=== PATIENT | male | born 1960 | race Caucasian/White ===

== ENCOUNTER 2018-03-28 13:18 | Inpatient (IN) | payer MEDICARE ==
[~2018-03-28] VITALS: Ht 188 cm; Wt 59.2 kg
[~2018-03-28 13:18] MED LIST: ZYPR15TA12 PO
[2018-03-28 13:43] VITALS: BP 115/71; PULSE 80; RESP 20; TEMP 97.4; O2SAT 98
--- NOTE | 2018-03-28 17:29 | PD ---
HPI Chief Complaint: Medical Clearance Time Seen by Provider: 16:03 Travel History International Travel<30 days: No Contact w/Intl Traveler<30days: No Traveled to known affect area: No History of Present Illness HPI 57-year-old male presents to the emergency department. Apparently in triage she was complaining about his toenail fungus and then also complaining about the fact that he is missing his Medicaid card. On my examination the patient has very disorganized thoughts and appears to be having possible visual hallucinations. He has history of schizophrenia and says he is not on medications. When I asked him about his toenail fungus he said he is afraid of it hurting. He also asked "can I go to [facility] voluntarily?" He said he walked here from his home to be admitted. When asked him what he wanted to be admitted for he does not know. He denies suicidal or homicidal ideations. Denies auditory or visual hallucinations. Denies illicit drug use, alcohol use. Denies recent injuries. Says he is not homeless and he lives alone. He says he was here earlier to sign paperwork. I reviewed his medical records and I do not see that he has any visit here today. He cannot recall his medical history and does not know what medications he takes. He does not know if he has a primary care provider. Symptoms are moderate to severe in severity. Onset unknown. Duration unknown. No known aggravating or relieving factors. Patient has no other medical complaints. He denies chest pain, shortness of breath, abdominal pain, change in urine or stool. No other modifying factors or associated signs and symptoms. PFSH Past Medical History Arthritis: No Asthma: No Autoimmune Disease: No Blood Disorders: No Anxiety: Yes Depression: No Heart Rhythm Problems: No Cancer: No Cardiovascular Problems: No High Cholesterol: No Chemotherapy: No Chest Pain: No Congestive Heart Failure: No COPD: No Cerebrovascular Accident: No Diabetes: No Diminished Hearing: No Endocrine: No GERD: No Glaucoma: No Genitourinary: No Headaches: No Hepatitis: No Hiatal Hernia: No Hypertension: No Immune Disorder: No Kidney Stones: No Musculoskeletal: No Neurologic: No Psychiatric: Yes Reproductive: No Respiratory: No Migraines: No Myocardial Infarction: No Radiation Therapy: No Renal Failure: No Schizophrenia: Yes Seizures: No Sleep Apnea: No Thyroid Disease: No Ulcer: No Tetanus Vaccination: < 5 Years Past Surgical History Abdominal Surgery: No AICD: No Appendectomy: No Arteriovenous Shunt: No Cardiac Surgery: No Cholecystectomy: No Ear Surgery: No Endocrine Surgery: No Eye Surgery: No Genitourinary Surgery: No Gynecologic Surgery: No Insulin Pump: No Joint Replacement: No Oral Surgery: No Pacemaker: No Thoracic Surgery: No Social History Alcohol Use: No Tobacco Use: Yes (1 PACK A DAY FOR 35YRS) Substance Use: No (DENIES) Allergies-Medications (Allergen,Severity, Reaction): Coded Allergies: No Known Allergies (Verified Allergy, Severe, PER PSYCHIATRIC ADMISSION ORDERS, 09/30/07) Reported Meds & Prescriptions Reported Meds & Active Scripts Active Reported Zyprexa Zydis (Olanzapine) 15 Mg Tab 15 Mg PO BID Review of Systems Except as stated in HPI: all other systems reviewed are Neg Physical Exam Narrative GENERAL: Thin, elderly, male patient, in no acute distress SKIN: Warm and dry. HEAD: Atraumatic. Normocephalic. EYES: Pupils equal and round. ENT: Mucosa pink and moist. NECK: Supple. Trachea midline. CARDIOVASCULAR: Regular rate and rhythm. No murmur appreciated. RESPIRATORY: No accessory muscle use. Clear to auscultation. Breath sounds equal bilaterally. GASTROINTESTINAL: Abdomen soft, non-tender, nondistended. Hepatic and splenic margins not palpable. Bowel sounds are active 4 quadrants. MUSCULOSKELETAL: No obvious deformities. No clubbing. No cyanosis. No edema. BACK: No CVA tenderness. NEUROLOGICAL: Awake and alert. No obvious cranial nerve deficits. Motor grossly within normal limits. Normal speech. Moves all extremities. 5/5 strength to all extremities. PSYCHIATRIC: Disorganized thought processes. Appears to be having visual hallucinations. Data Data Last Documented VS Vital Signs Date Time Temp Pulse Resp B/P (MAP) Pulse Ox O2 Delivery O2 Flow Rate FiO2 03/28/18 13:43 97.4 80 20 115/71 (86) 98 Orders Orders Complete Blood Count With Diff (03/28/18 16:55) Comprehensive Metabolic Panel (03/28/18 16:55) Thyroid Stimulating Hormone (03/28/18 16:55) Psych Screen (03/28/18 16:55) Drug Screen, Random Urine (03/28/18 16:55) Alcohol (Ethanol) (03/28/18 16:55) Salicylates (Aspirin) (03/28/18 16:55) Tylenol (Acetaminophen) (03/28/18 16:55) Ct Brain W/O Iv Contrast(Rout) (03/28/18 ) Labs Laboratory Tests Test 03/28/18 17:20 [facility] Medical Decision Making Medical Screen Exam Complete: Yes Emergency Medical Condition: Yes Medical Record Reviewed: Yes Differential Diagnosis Schizophrenia, psychosis, dementia, medical clearance for psychiatric evaluation Narrative Course This is a 57-year-old male who has history of schizophrenia. His thoughts are disorganized and he appears to be having visual hallucinations. I initiated a Vickers act as I feel that without care or treatment person can cause serious bodily harm to himself. Physical examination and vital signs are essentially unremarkable. Patient has no medical complaints to report. Psych screen has been ordered. If the laboratory results are unremarkable, the patient will be medically cleared for psychiatric evaluation and disposition. CT head ordered for altered mental status. Diagnosis Primary Impression: Medical clearance for psychiatric admission Condition: Stable Amber Baltazar March 28, 2018 17:29
--- NOTE | 2018-03-28 17:56 | RADRPT ---
EXAM DATE/TIME: 03/28/2018 17:33 [facility] COMPARISON: No previous studies available for comparison. INDICATIONS : Altered mental status. RADIATION DOSE: 56.35 CTDIvol (mGy) MEDICAL HISTORY : Schizophrenia. SURGICAL HISTORY : None. ENCOUNTER: Initial ACUITY: 1 day PAIN SCALE: 0/10 LOCATION: cranial TECHNIQUE: Multiple contiguous axial images were obtained of the head. Using automated exposure control and adj ustment of the mA and/or kV according to patient size, radiation dose was kept as low as reasonably a chievable to obtain optimal diagnostic quality images. DICOM format image data is available electro nically for review and comparison. FINDINGS: CEREBRUM: The ventricles are normal for age. No evidence of midline shift, mass lesion, hemorrhage or acute in farction. No extra-axial fluid collections are seen. POSTERIOR FOSSA: The cerebellum and brainstem are intact. The 4th ventricle is midline. The cerebellopontine angle i s unremarkable. EXTRACRANIAL: The visualized portion of the orbits is intact. SKULL: The calvaria is intact. No evidence of skull fracture. CONCLUSION: Normal examination. Shaan Adrian MD on March 28, 2018 at 17:53 Board Certified Radiologist. This report was verified electronically.
[2018-03-28 18:13] LABS: AUTOMATED NEUTROPHIL # 5.8 TH/MM3 (1.8-7.7); BASOPHIL # 0.1 TH/MM3 (0-0.2); BASOPHIL % 1.2 % (0.0-2.0); EOSINOPHIL # 0.2 TH/MM3 (0-0.4); EOSINOPHIL % 2.8 % (0.0-4.0); HEMATOCRIT 37.7 % (39.0-51.0); HEMOGLOBIN 12.5 GM/DL (13.0-17.0); LYMPH % 17.2 % (9.0-44.0); LYMPHOCYTE # 1.4 TH/MM3 (1.0-4.8); MEAN CELL VOLUME 88.9 FL (80.0-100.0); MEAN CORPUSCULAR HEMOGLOBIN 29.5 PG (27.0-34.0); MEAN CORPUSCULAR HGB CONC 33.2 % (32.0-36.0); MEAN PLATELET VOLUME 9.7 FL (7.0-11.0); MONO % 7.2 % (0.0-8.0); MONOCYTE # 0.6 TH/MM3 (0-0.9); NEUT % 71.6 % (16.0-70.0); PLATELET COUNT 158 TH/MM3 (150-450); RED BLOOD COUNT 4.24 MIL/MM3 (4.50-5.90); RED CELL DISTRIBUTION WIDTH 15.7 % (11.6-17.2); WHITE BLOOD COUNT 8.1 TH/MM3 (4.0-11.0)
[2018-03-28 18:20] LABS: ALT (GPT) 44 U/L (12-78)
[2018-03-28 18:30] LABS: ALKALINE PHOSPHATASE 78 U/L (45-117); TOTAL BILIRUBIN ADULT 0.5 MG/DL (0.2-1.0); TOTAL PROTEIN 6.3 GM/DL (6.4-8.2)
[2018-03-28 18:49] LABS: ACETAMINOPHEN LESS THAN 2.0 MCG/ML (10.0-30.0); ALBUMIN 3.4 GM/DL (3.4-5.0); AST (GOT) 58 U/L (15-37); BICARBONATE 25.8 MEQ/L (21.0-32.0); BLOOD UREA NITROGEN 23 MG/DL (7-18); CALCIUM 8.5 MG/DL (8.5-10.1); CHLORIDE 106 MEQ/L (98-107); CREATININE 0.59 MG/DL (0.60-1.30); GLOMERULAR FILTRATION RATE 142 ML/MIN (>89); GLUCOSE,RANDOM 81 MG/DL (74-106); SODIUM (NA) 140 MEQ/L (136-145)
[2018-03-29 00:09] VITALS: BP 112/64; PULSE 65; RESP 17; O2SAT 98
[2018-03-29 06:13] VITALS: BP 136/84; PULSE 69; RESP 16; O2SAT 99
[2018-03-29] MEDS ORDERED: MAGNESIUM HYDROXIDE SUSP 30 ML CUP PO PRN (10:45)
[2018-03-29] MEDS ORDERED: ACETAMINOPHEN 325 MG TAB PO PRN (10:45)
[2018-03-29] MEDS ORDERED: LORazepam 1 MG TAB PO PRN (10:45)
[2018-03-29] MEDS ORDERED: LORazepam 2 MG/ML VIAL IM PRN ×2 (10:45)
[2018-03-29] MEDS ORDERED: LORazepam 0.5 MG TAB PO PRN (10:45)
[2018-03-29] MEDS ORDERED: ALUMINUM/MAGNESIUM/SIMETH 30 ML CUP PO PRN (10:45)
--- NOTE | 2018-03-29 10:53 | HHI.HP ---
Provisional Diagnosis Admission Date [place] I. Schizophrenia [place] II. Deferred [place] III. No medical problems [place] IV. Poor family and social support [place] V. 40 Certification of Person's Competence To Provide Express and Informed Consent I have personally examined Alejandro Davey , a person being served at [facility] on, March 29, 2018 10:36. Express and informed consent means consent voluntarily given in writing, by a competent person, after sufficient explanation and disclosure of the subject matter involved to enable the person to make a knowing and willful decision without any element of force, fraud, deceit, duress, or other form of constraint or coercion. This person is 18 years of age or older, is not now known to be incompetent to consent to treatment with a guardian advocate, and does not have a health care surrogate or proxy currently making medical treatment decisions. I have found this person to be one of the following: [] Competent to provide express and informed consent, as defined above, for voluntary admission to this facility and is competent to provide express and informed consent for treatment. He/she has the consistent capacity to make well reasoned, willful, and knowing decisions concerning his or her medical or mental health treatment. The person fully and consistently understands the purpose of the admission for examination/placement and is fully capable of personally exercising all rights assured [place] Incompetent to provide express and informed consent to voluntary admission, and this is incompetent to provide express and informed consent to treatment. The person must be transferred to involuntary status and a petition for a guardian advocate filed with the Circuit Court. [x] Refusing to provide express and informed consent to voluntary admission but is competent to provide express and informed consent for treatment. The person must be discharged or transferred to involuntary status. Form shall be completed within 24 hours of a person's arrival at the receiving facility and filed in the clinical record of each person: 1. Admitted on a voluntary basis 2. Permitted to provide express and informed consent to his/her own treatment 3. Allowed to transfer from involuntary to voluntary status 4. Prior to permitting a person to consent to his or her own treatment after having been previously found incompetent to consent to treatment. History of Present Illness Capacity: Has Capacity HPI The patient is 57-year-old man, domiciled with a friend in [place] , single, unemployed, with psychiatric history of schizophrenia, multiple psychiatric hospitalizations, he is not in psychotropics, no established outpatient care, no previous suicide attempts, patient was hospitalized in psychiatry in [place] in 2006, documentation reviewed, no significant medical history, who presents in triage complaining about his toenail fungus and then also complaining about the fact that he is missing his Medicaid card. On initial examination in the ER the patient has very disorganized thoughts and appears to be having possible visual hallucinations. When I asked him about his toenail fungus he said he is afraid of it hurting. He also asked "can I go to [facility] voluntarily?" He said he walked here from his home to be admitted. When asked him what he wanted to be admitted for he does not know. Patient is very disorganized, with Fahad loosening of associations, he is able to answer questions appropriately, but when he allowed reasonable idea he becomes quite tangential. He seems to be a little paranoid and internally preoccupied to he says that he has not been taking psychotropics for many years now. He was in olanzapine 10 mg before, but he stopped taking medications "because I did not need them anymore". The patient is fully oriented 3, no attention deficit, no fluctuation of consciousness. He is not aggressive or agitated. He reports good mood, denies anhedonia, denies hopelessness, denies helplessness. He agrees with being admitted and restart his psychotropics. He denies suicidal or homicidal ideations. Denies auditory or visual hallucinations. Denies illicit drug use, alcohol use. Review of Systems Constitutional: DENIES: Diaphoretic episodes, Fatigue, Fever, Weight gain, Weight loss, Chills, Dizziness, Change in appetite, Night Sweats Endocrine: DENIES: Heat/cold intolerance, Polydipsia, Polyuria, Polyphagia Eyes: DENIES: Blurred vision, Diplopia, Eye inflammation, Eye pain, Vision loss , Photosensitivity, Double Vision Ears, nose, mouth, throat: DENIES: Tinnitus, Hearing loss, Vertigo, Nasal discharge, Oral lesions, Throat pain, Hoarseness, Ear Pain, Running Nose, Epistaxis, Sinus Pain, Toothache, Odynophagia Respiratory: DENIES: Apneas, Cough, Snoring, Wheezing, Hemoptysis, Sputum production, Shortness of breath Cardiovascular: DENIES: Chest pain, Palpitations, Syncope, Dyspnea on Exertion , PND, Lower Extremity Edema, Orthopnea, Claudication Gastrointestinal: DENIES: Abdominal pain, Black stools, Bloody stools, Constipation, Diarrhea, Nausea, Vomiting, Difficulty Swallowing, Anorexia Genitourinary: DENIES: Sexual dysfunction, Urinary frequency, Urinary incontinence, Urgency, Hematuria, Dysuria, Nocturia, Penile Discharge, Testicular Pain, Testicular Swelling Musculoskeletal: DENIES: Joint pain, Muscle aches, Stiffness, Joint Swelling, Back pain, Neck pain Integumentary: DENIES: Abnormal pigmentation, Nail changes, Pruritus, Rash Immunologic/allergic: DENIES: Eczema, Urticaria Neurologic: DENIES: Abnormal gait, Headache, Localized weakness, Paresthesias, Seizures, Speech Problems, Tremor, Poor Balance Psychiatric: COMPLAINS OF: Hallucinations, Delusions, DENIES: Anxiety, Confusion, Mood changes, Depression, Agitation, Suicidal Ideation, Homicidal Ideation Substance Abuse History Drugs/Alcohol past 12 months Patient denies the use of alcohol and illegal drugs Past Family Social History Coded Allergies: No Known Allergies (Verified Allergy, Severe, PER PSYCHIATRIC ADMISSION ORDERS, 09/30/07) Discontinued Reported Medications Olanzapine (Zyprexa Zydis) 15 Mg Tab, 15 MG PO BID, 0 Refills 10/09/07 Current Medications Medications (Trade) Dose Ordered Sig/Maggie Route Start Time Stop Time Status Last Admin (Ativan) 1 mg Q6H PRN PO 03/29/18 10:45 UNV (Ativan Inj) 1 mg Q6H PRN IM 03/29/18 10:45 UNV (Ativan) 0.5 mg Q12H PRN PO 03/29/18 10:45 UNV (Ativan Inj) 0.5 mg Q12H PRN IM 03/29/18 10:45 UNV (Tylenol) 650 mg Q4H PRN PO 03/29/18 10:45 UNV (Milk Of Magnesia Liq) 30 ml DAILY PRN PO 03/29/18 10:45 UNV (Mag-Al Plus Susp Liq) 30 ml Q6H PRN PO 03/29/18 10:45 UNV (Habitrol 21 Mg Patch.24 Hr) 1 patch DAILY T-DERMAL 03/30/18 09:00 UNV (ZyPREXA) 2.5 mg HS PO 03/29/18 21:00 UNV Family Psych History No family psychiatric history Social History The patient was born and raised in [place], he losing holy heel with a friend, his single, has no family or social support, unemployed, supported by [facility], his highest level of education is 8th grade. Patient's Strengths (min. 2) Verbal communication Physical Exam Patient is quite hypoactive, with marked psychomotor retardation, but no tremors , no EPS, no gait disturbance Vital Signs Vital Signs Date Time Temp Pulse Resp B/P (MAP) Pulse Ox O2 Delivery O2 Flow Rate FiO2 03/29/18 06:13 69 16 136/84 (101) 99 Room Air 03/28/18 13:43 97.4 Lab Results Test 03/28/18 17:10 03/28/18 17:20 03/28/18 20:30 Blood Urea Nitrogen 23 MG/DL Creatinine 0.59 MG/DL Random Glucose 81 MG/DL Total Protein 6.3 GM/DL Albumin 3.4 GM/DL Calcium Level 8.5 MG/DL Alkaline Phosphatase 78 U/L Aspartate Amino Transf (AST/SGOT) 58 U/L Alanine Aminotransferase (ALT/SGPT) 44 U/L Total Bilirubin 0.5 MG/DL Sodium Level 140 MEQ/L Potassium Level 4.3 MEQ/L Chloride Level 106 MEQ/L Carbon Dioxide Level 25.8 MEQ/L Anion Gap 8 MEQ/L Estimat Glomerular Filtration Rate 142 ML/MIN Thyroid Stimulating Hormone 3rd Gen 0.932 uIU/ML Acetaminophen Level LESS THAN 2.0 MCG/ML Ethyl Alcohol Level LESS THAN 3 MG/DL White Blood Count 8.1 TH/MM3 Red Blood Count 4.24 MIL/MM3 Hemoglobin 12.5 GM/DL Hematocrit 37.7 % Mean Corpuscular Volume 88.9 FL Mean Corpuscular Hemoglobin 29.5 PG Mean Corpuscular Hemoglobin Concent 33.2 % Red Cell Distribution Width 15.7 % Platelet Count 158 TH/MM3 Mean Platelet Volume 9.7 FL Neutrophils (%) (Auto) 71.6 % Lymphocytes (%) (Auto) 17.2 % Monocytes (%) (Auto) 7.2 % Eosinophils (%) (Auto) 2.8 % Basophils (%) (Auto) 1.2 % Neutrophils # (Auto) 5.8 TH/MM3 Lymphocytes # (Auto) 1.4 TH/MM3 Monocytes # (Auto) 0.6 TH/MM3 Eosinophils # (Auto) 0.2 TH/MM3 Basophils # (Auto) 0.1 TH/MM3 CBC Comment AUTO DIFF Differential Comment AUTO DIFF CONFIRMED Platelet Estimate NORMAL Platelet Morphology Comment CLUMPED Salicylates Level 3.9 MG/DL Urine Opiates Screen NEG Urine Barbiturates Screen NEG Urine Amphetamines Screen NEG Urine Benzodiazepines Screen NEG Urine Cocaine Screen NEG Urine Cannabinoids Screen NEG Mental Status Examination Appearance: Dirty, Disheveled, Other (Older than stated age) Consciousness: Alert Orientation: x4 Motor Activity: Abnormal gait Speech: Incoherent Language: Adequate Fund of Knowledge: Adequate Attention and Concentration: Adequate Memory: Unremarkable Mood: Appropriate Affect: Flat Thought Process & Associations: Loose associations, Disorganized Thought Content: Appropriate Hallucination Type: Visual Suicidal Ideation: No Suicidal Plan: No Suicidal Intention: No Homicidal Ideation: No Homicidal Plan: No Homicidal Intention: No Insight: Poor Judgment: Poor Assessment & Plan Problem List: (1) Schizophrenia ICD Codes: F20.9 - Schizophrenia, unspecified Assessment & Plan: Patient presents quite disorganized, psychotic, with Fahad loosening of associations, internal preoccupation, incoherent speech, increased paranoia and reported visual hallucinations. Patient is oriented 3, he does not seem to be cognitively impaired. He has a psychiatric history of schizophrenia, multiple psychiatric hospitalizations, no previous suicidal attempts, the patient admits that he has not been taking psychotropics for a long time now. Due to the level of psychosis the patient is a high risk of danger to self. He needs psychiatric admission for stabilization and safety. Transferred to 2600 unit. We will start olanzapine 2.5 mg twice daily. Consult psychiatry for second opinion. painting and coating worker intervention for psychosocial assessment, collateral information, individual and group therapies , to coordinate safe discharge. Assessment & Plan Estimated LOS: Neal Garcia MD March 29, 2018 10:53
[2018-03-29 12:43] VITALS: BP 122/67; PULSE 63; RESP 16; TEMP 98.1; O2SAT 98
[2018-03-29] MEDS ORDERED: OLANZapine 2.5 MG TAB PO SCH (21:00)
[2018-03-30 05:41] VITALS: BP 102/60; PULSE 61; RESP 16; TEMP 98; O2SAT 98
[2018-03-30] MEDS: NICOTINE 21 MG/24 HR PATCH T-DERMAL SCH (09:00)
[2018-03-30 09:38] LABS: BICARBONATE 27.1 MEQ/L (21.0-32.0); BLOOD UREA NITROGEN 18 MG/DL (7-18); CALCIUM 8.6 MG/DL (8.5-10.1); CHLORIDE 106 MEQ/L (98-107); CREATININE 0.82 MG/DL (0.60-1.30); GLOMERULAR FILTRATION RATE 97 ML/MIN (>89); GLUCOSE,RANDOM 90 MG/DL (74-106); SODIUM (NA) 140 MEQ/L (136-145)
[2018-03-30 09:40] LABS: CHOLESTEROL 159 MG/DL (120-200)
[2018-03-30 09:43] LABS: CHOLESTEROL/ HDL RATIO 2.74 RATIO; HDL CHOLESTEROL 57.9 MG/DL (40.0-60.0); LDL CHOLESTEROL 72 MG/DL (0-99); TRIGLYCERIDES 144 MG/DL (42-150)
--- NOTE | 2018-03-30 12:20 | HHI.PYPN ---
Subjective Remarks This is a request for second opinion. Admission note was reviewed and I agree with the history. Patient was seen and case was discussed with nursing. Patient is disheveled, loose, hyperactive and looking about the room during the interview. Medication reviewed and he is on a very low-dose of Zyprexa. He is alert and oriented 3 and does have consent for medication. Denies suicidal or homicidal ideation intent or plan Mental Status Examination Appearance: Dirty, Disheveled, Other (Older than stated age) Consciousness: Alert Orientation: x4 Motor Activity: Abnormal gait Speech: Incoherent Language: Adequate Fund of Knowledge: Adequate Attention and Concentration: Adequate Memory: Unremarkable Mood: Appropriate Affect: Flat Thought Process & Associations: Loose associations, Disorganized Thought Content: Delusional Hallucination Type: None Delusion Type: Paranoid Suicidal Ideation: No Suicidal Plan: No Suicidal Intention: No Homicidal Ideation: No Homicidal Plan: No Homicidal Intention: No Insight: Poor Judgment: Poor Results Labs Test 03/30/18 08:45 Blood Urea Nitrogen 18 MG/DL Creatinine 0.82 MG/DL Random Glucose 90 MG/DL Calcium Level 8.6 MG/DL Sodium Level 140 MEQ/L Potassium Level 4.4 MEQ/L Chloride Level 106 MEQ/L Carbon Dioxide Level 27.1 MEQ/L Anion Gap 7 MEQ/L Estimat Glomerular Filtration Rate 97 ML/MIN Triglycerides Level 144 MG/DL Cholesterol Level 159 MG/DL LDL Cholesterol 72 MG/DL HDL Cholesterol 57.9 MG/DL Cholesterol/HDL Ratio 2.74 RATIO Vitals/IOs Vital Signs Date Time Temp Pulse Resp B/P (MAP) Pulse Ox O2 Delivery O2 Flow Rate FiO2 03/30/18 05:41 98.0 61 16 102/60 (74) 98 03/29/18 06:13 Room Air Intake and Output 03/30/18 03/30/18 03/31/18 08:00 16:00 00:00 Intake Total 240 ml Balance 240 ml Assessment & Plan Problem List: (1) Schizophrenia ICD Codes: F20.9 - Schizophrenia, unspecified Assessment & Plan Zyprexa was supposed to be twice daily and is given at bedtime. I will adjust the dose. I agree with the first opinion to continue petition. Criteria include acute psychosis Justification for Cont. Inpt. Patient would decompensate in a less restrictive setting Chivo Sunshine DO March 30, 2018 12:20
[2018-03-30 14:42] LABS: HEMOGLOBIN A1C 5.4 % (4.3-6.0)
[2018-03-30] MEDS: REMOVE OLD NICODERM (NICOTINE) PATCH T-DERMAL SCH (21:00)
[2018-03-30] MEDS: OLANZapine 2.5 MG TAB PO SCH (21:00)
[2018-03-31 05:49] VITALS: BP 113/64; PULSE 52; RESP 16; TEMP 98.9; O2SAT 97
[2018-03-31] MEDS: NICOTINE 21 MG/24 HR PATCH T-DERMAL SCH (07:58)
[2018-03-31] MEDS: OLANZapine 2.5 MG TAB PO SCH ×2 (07:58→21:25)
--- NOTE | 2018-03-31 12:30 | HHI.PYPN ---
Subjective Remarks Patient was seen and case discussed with nursing. Zyprexa was increased yesterday and patient is tolerating it well. He does remained disheveled with bizarre posturing movements during the interview. At times, he has a wild eyed look during the interview. Responding to internal stimuli. Mental Status Examination Appearance: Dirty, Disheveled, Other (Older than stated age) Consciousness: Alert Orientation: x4 Motor Activity: Abnormal gait Speech: Incoherent Language: Adequate Fund of Knowledge: Adequate Attention and Concentration: Adequate Memory: Unremarkable Mood: Appropriate Affect: Flat Thought Process & Associations: Loose associations, Disorganized Thought Content: Delusional Hallucination Type: None Delusion Type: Paranoid Suicidal Ideation: No Suicidal Plan: No Suicidal Intention: No Homicidal Ideation: No Homicidal Plan: No Homicidal Intention: No Insight: Poor Judgment: Poor Results Vitals/IOs Vital Signs Date Time Temp Pulse Resp B/P (MAP) Pulse Ox O2 Delivery O2 Flow Rate FiO2 03/31/18 05:49 98.9 52 16 113/64 (80) 97 03/29/18 06:13 Room Air Assessment & Plan Problem List: (1) Schizophrenia ICD Codes: F20.9 - Schizophrenia, unspecified Assessment & Plan Continue Zyprexa titrations tomorrow Justification for Cont. Inpt. Patient would decompensate in a less restrictive setting Chivo Sunshine DO March 31, 2018 12:30
[2018-03-31 17:59] VITALS: BP 104/62; PULSE 70; RESP 18; TEMP 98.6; O2SAT 100
[2018-03-31] MEDS: REMOVE OLD NICODERM (NICOTINE) PATCH T-DERMAL SCH (21:00)
[2018-04-01 06:18] VITALS: BP 124/72; PULSE 64; RESP 18; TEMP 97; O2SAT 100
[2018-04-01] MEDS: NICOTINE 21 MG/24 HR PATCH T-DERMAL SCH (08:24)
[2018-04-01] MEDS: OLANZapine 2.5 MG TAB PO SCH (08:24)
--- NOTE | 2018-04-01 13:50 | HHI.PYPN ---
Subjective Remarks I have seen this patient for psychiatric reevaluation. I have also review the documentation from weekend psychiatrist. I have discussed the case with nurse in charge. On psychiatric evaluation today the patient is found in the gonsalez of the unit. He is calm, cooperative, a little bit disorganized. Patient reports feeling okay, he has no loosening of associations, times become a little bit agitated, but he is redirectable. He reports good mood, denies suicidal and homicidal ideation, he denies visual and auditory hallucinations. He is fully oriented 3. Compliant with medications, no significant side effects. No behavioral problems in the unit. Review of Systems Psychiatric: COMPLAINS OF: Delusions Mental Status Examination Appearance: Dirty, Disheveled, Other (Older than stated age) Consciousness: Alert Orientation: x4 Motor Activity: Abnormal gait Speech: Incoherent Language: Adequate Fund of Knowledge: Adequate Attention and Concentration: Adequate Memory: Unremarkable Mood: Appropriate Affect: Flat Thought Process & Associations: Loose associations, Disorganized Thought Content: Delusional Hallucination Type: None Delusion Type: Paranoid Suicidal Ideation: No Suicidal Plan: No Suicidal Intention: No Homicidal Ideation: No Homicidal Plan: No Homicidal Intention: No Insight: Poor Judgment: Poor Results Vitals/IOs Vital Signs Date Time Temp Pulse Resp B/P (MAP) Pulse Ox O2 Delivery O2 Flow Rate FiO2 04/01/18 06:18 97.0 64 18 124/72 (89) 100 03/29/18 06:13 Room Air Assessment & Plan Problem List: (1) Schizophrenia ICD Codes: F20.9 - Schizophrenia, unspecified Assessment & Plan: Patient continues to show acute psychosis, he has loosening of associations, disorganized behavior and speech. We will increase Zyprexa to 5 mg twice daily. Assessment & Plan Estimated LOS: days Justification for Cont. Inpt. Patient continues to be acutely psychotic. Neal Mcclain MD April 01, 2018 13:50
[2018-04-01] MEDS: REMOVE OLD NICODERM (NICOTINE) PATCH T-DERMAL SCH (21:00)
[2018-04-01] MEDS: OLANZapine 5 MG TAB PO SCH (21:05)
[2018-04-02 06:14] VITALS: BP 111/59; PULSE 60; RESP 16; TEMP 97.7; O2SAT 98
[2018-04-02] MEDS: NICOTINE 21 MG/24 HR PATCH T-DERMAL SCH (08:38)
[2018-04-02] MEDS: OLANZapine 5 MG TAB PO SCH ×2 (08:38→21:00)
--- NOTE | 2018-04-02 12:57 | HHI.PYPN ---
Subjective Remarks Patient was seen today for psychiatric reevaluation. The patient was found in the gons[place], pacing, with mild to moderate psychomotor agitation, but redirectable. The patient reports that he has been doing okay, he reports good mood, he says that he is happy to be here, the patient becomes tangential, kind of disorganized. He has been talking to himself in the unit, internally preoccupied, but not difficult to handle. He has been compliant with his medications, no significant side effects. He denies suicidal enemas ideation, he denies visual and auditory hallucinations. Mental Status Examination Appearance: Dirty, Disheveled, Other (Older than stated age) Consciousness: Alert Orientation: x4 Motor Activity: Abnormal gait Speech: Incoherent Language: Adequate Fund of Knowledge: Adequate Attention and Concentration: Adequate Memory: Unremarkable Mood: Appropriate Affect: Flat Thought Process & Associations: Loose associations, Disorganized Thought Content: Delusional Hallucination Type: None Delusion Type: Paranoid Suicidal Ideation: No Suicidal Plan: No Suicidal Intention: No Homicidal Ideation: No Homicidal Plan: No Homicidal Intention: No Insight: Poor Judgment: Poor Results Vitals/IOs Vital Signs Date Time Temp Pulse Resp B/P (MAP) Pulse Ox O2 Delivery O2 Flow Rate FiO2 04/02/18 06:14 97.7 60 16 111/59 (76) 98 Assessment & Plan Problem List: (1) Schizophrenia ICD Codes: F20.9 - Schizophrenia, unspecified Assessment & Plan: Patient we will continue current psychotropic regimen. Patient still psychotic, internally preoccupied, disorganized. Brief supportive psychotherapy provided. Assessment & Plan Estimated LOS: days Justification for Cont. Inpt. The patient has an elevated chance to decompensate at a lower level of care Neal Mcclain MD April 02, 2018 12:57
[2018-04-02] MEDS: CLOTRIMAZOLE 1% CREAM 15 GM TOPICAL SCH ×2 (17:05→21:25)
[2018-04-02 18:02] VITALS: BP 155/80; PULSE 86; RESP 18; TEMP 98.1; O2SAT 98
[2018-04-02] MEDS: REMOVE OLD NICODERM (NICOTINE) PATCH T-DERMAL SCH (21:00)
[2018-04-03 06:37] VITALS: BP 169/83; PULSE 77; RESP 16; TEMP 97.8; O2SAT 97
[2018-04-03] MEDS: NICOTINE 21 MG/24 HR PATCH T-DERMAL SCH (09:00)
[2018-04-03] MEDS: OLANZapine 5 MG TAB PO SCH (09:01)
[2018-04-03] MEDS: CLOTRIMAZOLE 1% CREAM 15 GM TOPICAL SCH ×2 (09:01→21:17)
--- NOTE | 2018-04-03 11:55 | HHI.PYPN ---
Subjective Remarks The patient was seen today for psychiatric reevaluation. The patient was calm, both kind of agitated, however episodic bizarre and purposeless movements. He says that he feels fine, reports good mood, reports good appetite and good sleep. He has to be redirected multiple times due to tangential speech loosening of associations. He seems to be internally preoccupied. No aggressive behavior reported. He has been compliant with his psychotropics, no side effects present. Oriented 3. No gross cognitive impairment. Mental Status Examination Appearance: Dirty, Disheveled, Other (Older than stated age) Consciousness: Alert Orientation: x4 Motor Activity: Abnormal gait Speech: Incoherent Language: Adequate Fund of Knowledge: Adequate Attention and Concentration: Adequate Memory: Unremarkable Mood: Appropriate Affect: Flat Thought Process & Associations: Loose associations, Disorganized Thought Content: Delusional Hallucination Type: None Delusion Type: Paranoid Suicidal Ideation: No Suicidal Plan: No Suicidal Intention: No Homicidal Ideation: No Homicidal Plan: No Homicidal Intention: No Insight: Poor Judgment: Poor Results Vitals/IOs Vital Signs Date Time Temp Pulse Resp B/P (MAP) Pulse Ox O2 Delivery O2 Flow Rate FiO2 04/03/18 06:37 97.8 77 16 169/83 (111 97 Assessment & Plan Problem List: (1) Schizophrenia ICD Codes: F20.9 - Schizophrenia, unspecified Assessment & Plan: Patient continues to be psychotic, with a modest response to current psychotropic regimen, will increase olanzapine to 7.5 mg twice daily. (2) Tinea pedis ICD Codes: B35.3 - Tinea pedis Assessment & Plan: Will order clotrimazole cream. Assessment & Plan Estimated LOS: days Justification for Cont. Inpt. Patient is acutely psychotic, Neal Mcclain MD April 03, 2018 11:55
[2018-04-03 16:59] VITALS: BP 115/68; PULSE 69; RESP 17; TEMP 98.2; O2SAT 98
[2018-04-03] MEDS: REMOVE OLD NICODERM (NICOTINE) PATCH T-DERMAL SCH (21:00)
[2018-04-03] MEDS: OLANZapine 2.5 MG TAB PO SCH (21:16)
[2018-04-04 05:44] VITALS: BP 131/51; PULSE 54; RESP 18; TEMP 97.5; O2SAT 98
[2018-04-04] MEDS: NICOTINE 21 MG/24 HR PATCH T-DERMAL SCH (09:00)
[2018-04-04] MEDS: OLANZapine 2.5 MG TAB PO SCH ×2 (09:52→22:00)
[2018-04-04] MEDS: CLOTRIMAZOLE 1% CREAM 15 GM TOPICAL SCH ×2 (09:52→22:00)
--- NOTE | 2018-04-04 12:38 | HHI.PYPN ---
Subjective Remarks The patient was seen today for psychiatric reevaluation, he was also seen in court. Patient is calm, superficially cooperative, he continues to be at times disorganized, but with redirection the patient is able to answer of my questions. He denies suicidal enemas ideation, he denies visual and auditory hallucinations. The patient continues to pace back and forward in the unit, talking to himself, internally stimuli, but no aggressive or agitated. Compliant with his medications, no significant side effects. Mental Status Examination Appearance: Dirty, Disheveled, Other (Older than stated age) Consciousness: Alert Orientation: x4 Motor Activity: Abnormal gait Speech: Incoherent Language: Adequate Fund of Knowledge: Adequate Attention and Concentration: Adequate Memory: Unremarkable Mood: Appropriate Affect: Flat Thought Process & Associations: Loose associations, Disorganized Thought Content: Delusional Hallucination Type: None Delusion Type: Paranoid Suicidal Ideation: No Suicidal Plan: No Suicidal Intention: No Homicidal Ideation: No Homicidal Plan: No Homicidal Intention: No Insight: Poor Judgment: Poor Results Vitals/IOs Vital Signs Date Time Temp Pulse Resp B/P (MAP) Pulse Ox O2 Delivery O2 Flow Rate FiO2 04/04/18 05:44 97.5 54 18 131/51 (77) 98 Assessment & Plan Problem List: (1) Schizophrenia ICD Codes: F20.9 - Schizophrenia, unspecified Assessment & Plan: Continue current psychotropic regimen. Brief supportive psychotherapy provided. Patient will stay in psychiatric hospitalization in Voluntary basis. (2) Tinea pedis ICD Codes: B35.3 - Tinea pedis Assessment & Plan Estimated LOS: days Justification for Cont. Inpt. Patient has an elevated risk to decompensate at a lower level of care. Neal Mcclain MD April 04, 2018 12:38
[2018-04-04 17:58] VITALS: BP 112/68; PULSE 57; RESP 18; TEMP 98.1; O2SAT 96
[2018-04-04] MEDS: REMOVE OLD NICODERM (NICOTINE) PATCH T-DERMAL SCH (21:00)
[2018-04-05 06:50] VITALS: BP 102/60; PULSE 49; RESP 18; TEMP 98; O2SAT 95
[2018-04-05] MEDS: NICOTINE 21 MG/24 HR PATCH T-DERMAL SCH (09:00)
[2018-04-05] MEDS: CLOTRIMAZOLE 1% CREAM 15 GM TOPICAL SCH ×2 (09:00→21:32)
[2018-04-05] MEDS: OLANZapine 2.5 MG TAB PO SCH ×2 (09:27→21:30)
--- NOTE | 2018-04-05 12:27 | HHI.PYPN ---
Subjective Remarks The patient was seen today for psychiatric reevaluation. The patient is found in the gonsalez, he seems to be quite disorganized today,poorly cooperative, incoherent and tangential. He has been taking his medications, no significant side effects reported. He has been reported talking to himself, at times disruptive, but no agitated or aggressive. Review of Systems Except as stated in HPI: all other systems reviewed are Neg Mental Status Examination Appearance: Dirty, Disheveled, Other (Older than stated age) Consciousness: Alert Orientation: x4 Motor Activity: Abnormal gait Speech: Incoherent Language: Adequate Fund of Knowledge: Adequate Attention and Concentration: Adequate Memory: Unremarkable Mood: Appropriate Affect: Flat Thought Process & Associations: Loose associations, Disorganized Thought Content: Delusional Hallucination Type: None Delusion Type: Paranoid Suicidal Ideation: No Suicidal Plan: No Suicidal Intention: No Homicidal Ideation: No Homicidal Plan: No Homicidal Intention: No Insight: Poor Judgment: Poor Results Vitals/IOs Vital Signs Date Time Temp Pulse Resp B/P (MAP) Pulse Ox O2 Delivery O2 Flow Rate FiO2 04/05/18 06:50 98.0 49 18 102/60 (74) 95 Assessment & Plan Problem List: (1) Schizophrenia ICD Codes: F20.9 - Schizophrenia, unspecified Assessment & Plan: increase Olanzapine to 10 mg bid for psychosis. (2) Tinea pedis ICD Codes: B35.3 - Tinea pedis Assessment & Plan Estimated LOS: days Justification for Cont. Inpt. patient is acutely psychotic Neal Mcclain MD April 05, 2018 12:27
[2018-04-05] MEDS: REMOVE OLD NICODERM (NICOTINE) PATCH T-DERMAL SCH (21:32)
[2018-04-06 05:16] VITALS: BP 111/59; PULSE 52; RESP 17; TEMP 97.3; O2SAT 99
[2018-04-06] MEDS: NICOTINE 21 MG/24 HR PATCH T-DERMAL SCH (08:54)
[2018-04-06] MEDS: OLANZapine 2.5 MG TAB PO SCH ×2 (08:54→21:07)
[2018-04-06] MEDS: CLOTRIMAZOLE 1% CREAM 15 GM TOPICAL SCH ×3 (08:55→20:31)
--- NOTE | 2018-04-06 14:46 | HHI.PYPN ---
Subjective Remarks Pt seen and discussed with staff. Chart reviewed. He is internally stimulated and frequently has conversations with unseen entities. He laughs inappropriately. He is isolative and does nto attend groups. Mental Status Examination Appearance: Dirty, Disheveled, Other (Older than stated age) Consciousness: Alert Orientation: x4 Motor Activity: Abnormal gait Speech: Incoherent Language: Adequate Fund of Knowledge: Adequate Attention and Concentration: Adequate Memory: Unremarkable Mood: Irritable Affect: Flat Thought Process & Associations: Loose associations, Disorganized Thought Content: Delusional Hallucination Type: Auditory Delusion Type: Paranoid Suicidal Ideation: No Suicidal Plan: No Suicidal Intention: No Homicidal Ideation: No Homicidal Plan: No Homicidal Intention: No Insight: Poor Judgment: Poor Results Vitals/IOs Vital Signs Date Time Temp Pulse Resp B/P (MAP) Pulse Ox O2 Delivery O2 Flow Rate FiO2 04/06/18 05:16 97.3 52 17 111/59 (76) 99 Assessment & Plan Problem List: (1) Schizophrenia ICD Codes: F20.9 - Schizophrenia, unspecified (2) Tinea pedis ICD Codes: B35.3 - Tinea pedis Assessment & Plan Continue current tx plan. Estimated LOS: days Justification for Cont. Inpt. impairments in reality testing Bianca Reyes MD April 06, 2018 14:46
[2018-04-06] MEDS: REMOVE OLD NICODERM (NICOTINE) PATCH T-DERMAL SCH (21:00)
[2018-04-07 05:54] VITALS: BP 121/65; PULSE 76; RESP 16; TEMP 97.5; O2SAT 97
[2018-04-07] MEDS: CLOTRIMAZOLE 1% CREAM 15 GM TOPICAL SCH ×2 (08:58→20:39)
[2018-04-07] MEDS: NICOTINE 21 MG/24 HR PATCH T-DERMAL SCH (08:58)
[2018-04-07] MEDS: OLANZapine 2.5 MG TAB PO SCH ×2 (09:25→20:39)
--- NOTE | 2018-04-07 12:53 | HHI.PYPN ---
Subjective Remarks Pt seen and discussed with staff. He presents with bizarre behavior and irritability. He has been compliant with medications. He paces the hallways and argues with himself but has not been agggressive. Mental Status Examination Appearance: Dirty, Disheveled, Other (Older than stated age) Consciousness: Alert Orientation: x4 Motor Activity: Abnormal gait Speech: Incoherent Language: Adequate Fund of Knowledge: Adequate Attention and Concentration: Adequate Memory: Unremarkable Mood: Irritable Affect: Flat Thought Process & Associations: Loose associations, Disorganized Thought Content: Delusional Hallucination Type: Auditory Delusion Type: Paranoid Suicidal Ideation: No Suicidal Plan: No Suicidal Intention: No Homicidal Ideation: No Homicidal Plan: No Homicidal Intention: No Insight: Poor Judgment: Poor Results Vitals/IOs Vital Signs Date Time Temp Pulse Resp B/P (MAP) Pulse Ox O2 Delivery O2 Flow Rate FiO2 04/07/18 05:54 97.5 76 16 121/65 (83) 97 Assessment & Plan Problem List: (1) Schizophrenia ICD Codes: F20.9 - Schizophrenia, unspecified (2) Tinea pedis ICD Codes: B35.3 - Tinea pedis Assessment & Plan Continue current tx plan Estimated LOS: days Justification for Cont. Inpt. impairments in reality testing Bianca Reyes MD April 07, 2018 12:53
[2018-04-07 18:46] VITALS: BP 120/75; PULSE 71; RESP 17; TEMP 98.1; O2SAT 96
[2018-04-07] MEDS: REMOVE OLD NICODERM (NICOTINE) PATCH T-DERMAL SCH (20:35)
[2018-04-08 05:37] VITALS: BP 117/74; PULSE 82; RESP 18; TEMP 98.4; O2SAT 98
[2018-04-08] MEDS: OLANZapine 2.5 MG TAB PO SCH ×2 (08:37→20:47)
[2018-04-08] MEDS: CLOTRIMAZOLE 1% CREAM 15 GM TOPICAL SCH ×2 (08:38→20:48)
[2018-04-08] MEDS: NICOTINE 21 MG/24 HR PATCH T-DERMAL SCH (08:38)
--- NOTE | 2018-04-08 11:17 | HHI.PYPN ---
Subjective Remarks The patient was seen today for psychiatric reevaluation. Psychiatric documentation from weekend rounder was reviewed. Psychiatric evaluation the patient is found in his room, he is calm, cooperative, still disorganized, but redirectable. He reports feeling much better, he has been taking his medications, no agitation or aggressive behavior reported, he denies suicidal and homicidal ideation, denies visual and auditory hallucinations. However, the patient is described as disorganized, at times disruptive in the unit. Review of Systems Except as stated in HPI: all other systems reviewed are Neg Mental Status Examination Appearance: Dirty, Disheveled, Other (Older than stated age) Consciousness: Alert Orientation: x4 Motor Activity: Abnormal gait Speech: Incoherent Language: Adequate Fund of Knowledge: Adequate Attention and Concentration: Adequate Memory: Unremarkable Mood: Irritable Affect: Flat Thought Process & Associations: Loose associations, Disorganized Thought Content: Delusional Hallucination Type: Auditory Delusion Type: Paranoid Suicidal Ideation: No Suicidal Plan: No Suicidal Intention: No Homicidal Ideation: No Homicidal Plan: No Homicidal Intention: No Insight: Poor Judgment: Poor Results Vitals/IOs Vital Signs Date Time Temp Pulse Resp B/P (MAP) Pulse Ox O2 Delivery O2 Flow Rate FiO2 04/08/18 05:37 98.4 82 18 117/74 (88) 98 Assessment & Plan Problem List: (1) Schizophrenia ICD Codes: F20.9 - Schizophrenia, unspecified Assessment & Plan: Continue current psychotropic regimen. Brief supportive psychotherapy provided. (2) Tinea pedis ICD Codes: B35.3 - Tinea pedis Assessment & Plan Estimated LOS: days Justification for Cont. Inpt. The patient has an elevated risk to decompensate at a lower level of Neal Mcclain MD April 08, 2018 11:16
[2018-04-08 17:02] VITALS: BP 130/73; PULSE 105; RESP 18; TEMP 97.7; O2SAT 98
[2018-04-08] MEDS: REMOVE OLD NICODERM (NICOTINE) PATCH T-DERMAL SCH (20:48)
[2018-04-09 06:32] VITALS: BP 125/78; PULSE 80; RESP 17; TEMP 97.5; O2SAT 96
[2018-04-09] MEDS: OLANZapine 2.5 MG TAB PO SCH (08:22)
[2018-04-09] MEDS: NICOTINE 21 MG/24 HR PATCH T-DERMAL SCH (08:23)
[2018-04-09] MEDS: CLOTRIMAZOLE 1% CREAM 15 GM TOPICAL SCH (08:23)
[2018-04-09] MEDS ORDERED: OLAN2.5T7 PO (11:23)
--- NOTE | 2018-04-09 11:27 | HHI.DS ---
Psychiatry Discharge Summary Inpatient Psychiatric care?: Yes Advance Directive: No Mental Health AdvanceDirective: No Health Care Proxy: No Admission Admission Date March 29, 2018 at 10:33 Admission Diagnosis: (1) Schizophrenia ICD Code: F20.9 - Schizophrenia, unspecified Brief History The patient is 57-year-old man, domiciled with a friend in [place] , single, unemployed, with psychiatric history of schizophrenia, multiple psychiatric hospitalizations, he is not in psychotropics, no established outpatient care, no previous suicide attempts, patient was hospitalized in psychiatry in [place] in 2006, documentation reviewed, no significant medical history, who presents in triage complaining about his toenail fungus and then also complaining about the fact that he is missing his Medicaid card. On initial examination in the ER the patient has very disorganized thoughts and appears to be having possible visual hallucinations. When I asked him about his toenail fungus he said he is afraid of it hurting. He also asked "can I go to [facility] voluntarily?" He said he walked here from his home to be admitted. When asked him what he wanted to be admitted for he does not know. Patient is very disorganized, with Fahad loosening of associations, he is able to answer questions appropriately, but when he allowed reasonable idea he becomes quite tangential. He seems to be a little paranoid and internally preoccupied to he says that he has not been taking psychotropics for many years now. He was in olanzapine 10 mg before, but he stopped taking medications "because I did not need them anymore". The patient is fully oriented 3, no attention deficit, no fluctuation of consciousness. He is not aggressive or agitated. He reports good mood, denies anhedonia, denies hopelessness, denies helplessness. He agrees with being admitted and restart his psychotropics. He denies suicidal or homicidal ideations. Denies auditory or visual hallucinations. Denies illicit drug use, alcohol use. Tobacco Use In Past 30 Days: Refused To Answer Alcohol Use: Never Results Blood Pressure 125 / 78 Vital Signs Date Time Temp Pulse Resp B/P (MAP) Pulse Ox O2 Delivery O2 Flow Rate FiO2 04/09/18 06:32 97.5 80 17 125/78 (94) 96 Laboratory Results Test 03/30/18 08:45 Cholesterol Level 159 MG/DL (120-200) HDL Cholesterol 57.9 MG/DL (40.0-60.0) Hemoglobin A1c 5.4 % (4.3-6.0) LDL Cholesterol 72 MG/DL (0-99) Triglycerides Level 144 MG/DL (42-150) Summary of Procedures None Imaging Last Impressions Head CT 03/28/18 0000 Signed Impressions: Service Date/Time: March 17:33 - CONCLUSION: Normal examination. Shaan Adrian MD Pending results at discharge: No Medications # of Antipsychotic meds at D/C: 1 Appropriate >1 Antipsych meds?: 1 Approp Antipsych med options 1 - Minimum of three failed multiple trials of monotherapy. 2 - Documented plan to taper to monotherapy due to previous use of multiple meds OR cross-taper in progress at D/C. 3 - Documentation of augmentation of Clozapine. 4 - Justification other than those listed in allowable values 1-3, document here : Discharge Discharge Date: April 09, 2018 Discharge Diagnosis: (1) Schizophrenia Diagnosis: Principal ICD Code: F20.9 - Schizophrenia, unspecified Pt Condition on Discharge: Fair Discharge Instructions Scheduled Appointment: [facility] Discharge Time > 30 minutes Mental Status Examination Appearance: Dirty, Disheveled, Other (Older than stated age) Consciousness: Alert Orientation: x4 Motor Activity: Abnormal gait Speech: Incoherent Language: Adequate Fund of Knowledge: Adequate Attention and Concentration: Adequate Memory: Unremarkable Mood: Irritable Affect: Flat Thought Process & Associations: Loose associations, Disorganized Thought Content: Delusional Hallucination Type: Auditory Delusion Type: Paranoid Suicidal Ideation: No Suicidal Plan: No Suicidal Intention: No Homicidal Ideation: No Homicidal Plan: No Homicidal Intention: No Insight: Poor Judgment: Poor Discharge/Advance Care Plan Health Problems: (1) Schizophrenia (2) Tinea pedis Goals to promote your health * To prevent worsening of your condition and complications * To maintain your health at the optimal level Directions to meet your goals Take your medications as prescribed Follow your dietary instruction Follow activity as directed Keep your appointments as scheduled Take your immunizations and boosters as scheduled If your symptoms worsen call your PCP, if no PCP go to Urgent Care Center or Emergency Room For 11/06 questions related to your inpatient stay or results of tests pending at discharge, please contact Dr. Neal Mcclain at Smoking is Dangerous to Your Health. Avoid second hand smoking Neal Mcclain MD April 09, 2018 11:27
== END 2018-04-09 14:00 | disposition home health service (06) | DRG 885 ==
LOC: NEPD 13:18 → NEDA 03-29 10:33 → H260 03-29 11:55
PROVIDERS: ADMIT Psychiatry & Neurology Psychiatry; ATTEND Psychiatry & Neurology Psychiatry
DX: F20.9 Schizophrenia, unspecified (principal); B35.3 Tinea pedis; F17.210 Nicotine dependence, cigarettes, uncomplicated
CPT/HCPCS: 70450; 80048; 80053; 80061; 80307; 83036; 84443; 85025

== ENCOUNTER 2018-10-07 10:37 | Inpatient (IN) ==
--- NOTE | 2018-10-07 11:08 | ED ---
HPI General Chief Complaint: Psychiatric Symptoms Stated Complaint: medical Time Seen by Provider: 10/07/18 10:54 Source: patient and RN notes reviewed Mode of arrival: ambulatory Limitations: no limitations History of Present Illness HPI Narrative: 58-year-old male presents to the emergency department voluntarily. When asked why he is here, he states that his neighbor is threatening him and trying to hurt him. He stated that therefore, he came to the emergency department. Patient has flight of ideas on my exam. He is alert oriented person, place, time. He reports history of schizophrenia. He states he is not currently on any prescribed medications. He quit taking his psychiatric medications after his last admission which was in March. Patient denies any other medical complaints at this time. He does admit to hearing voices. He denies any suicidal ideations. Moderate severity. MD complaint: Reports other (paranoid behavior) Duration: constant History of same: Yes Relieving factors: medication Exacerbating factors: other (not taking medications) Context: Reports not taking psychiatric medications Associated psychiatric symptoms: Reports racing thoughts and auditory hallucinations Associated symptoms: Reports denies other symptoms; Denies confusion, headache, shortness of breath, nausea, vomiting, syncope and insomnia Treatments prior to arrival: Reports none Related Data Home Medications Medication Instructions Recorded Confirmed No Known Home Medications 10/07/18 10/07/18 Allergies Allergy/AdvReac Type Severity Reaction Status Date / Time No Known Allergies Allergy Severe PER Uncoded 09/30/07 19:26 PSYCHIATRIC ADMISSION ORDERS Review of Systems ROS: all other systems reviewed are negative [facility] Social History Social History Substance History: No History of Abuse Second Hand Smoke Exposure: Yes Smoking Status: Current every day smoker Tobacco Type: Cigarettes How Often Do You Have a Drink Containing Alcohol: Never Recent Travel in [facility] within the Last 8 Weeks: No Recent Out of Country Travel within the Last 8 Weeks: No Exam Narrative Exam Narrative: GENERAL: Disheveled male patient who appears older than his stated age of 58. He is alert and oriented to person, place, time. SKIN: Focused skin assessment warm/dry. HEAD: Normocephalic. Atraumatic. EYES: No scleral icterus. No injection or drainage. NECK: Supple, trachea midline. No JVD or lymphadenopathy. CARDIOVASCULAR: Regular rate and rhythm without murmurs, gallops, or rubs. RESPIRATORY: Breath sounds equal bilaterally. No accessory muscle use. Lung sounds are clear to auscultation. GASTROINTESTINAL: Abdomen soft, non-tender, nondistended. MUSCULOSKELETAL: No cyanosis, or edema. PSYCHIATRIC: Patient appears paranoid believing his neighbor is trying to hurt him, flight of ideas Course Initial Documented Vital Signs Temperature 98.0 F 10/07/18 11:00 Pulse Rate 92 H 10/07/18 11:00 Respiratory Rate 16 10/07/18 11:00 Blood Pressure 142/78 H 10/07/18 11:00 Pulse Oximetry 100 10/07/18 11:00 Last Documented Vital Signs Temperature 97.3 F L 10/10/18 06:00 Pulse Rate 74 10/09/18 15:41 Respiratory Rate 18 10/09/18 15:41 Blood Pressure 143/63 H 10/10/18 06:00 Pulse Oximetry 99 10/09/18 15:41 Medical Decision Making MDM Narrative Medical decision making narrative: 58-year-old male presents to the emergency department stating that his neighbor is trying to hurt him. He does have history of schizophrenia and is not currently on any psychiatric medications. CBC, CMP, magnesium, TSH, alcohol level, urine drug screen are ordered and pending. CBC shows no acute abnormality. CMP shows no acute abnormality. Magnesium is 2.3. TSH is 1.640. Alcohol level is less than 3. UDS is pending. Patient is medically cleared for psychiatric screening and disposition. Medical Screen Exam Complete: Yes Emergency Medical Condition: Yes Medical Records Medical records reviewed: Yes I reviewed the patient's medical records. Lab Data Result diagrams: 10/07/18 13:10 10/09/18 08:27 Lab Results 10/07/18 10/07/18 10/09/18 Range/Units 13:10 13:10 08:27 WBC 7.6 (4.0-11.0) th/mm3 RBC 4.65 (4.50-5.90) mil/mm3 Hgb 14.1 (13.0-17.0) gm/dL Hct 40.7 (39.0-51.0) % MCV 87.6 (80.0-100.0) fL MCH 30.3 (27.0-34.0) pg MCHC 34.6 (32.0-36.0) % RDW 15.6 (11.6-17.2) % Plt Count 208 (150-450) th/mm3 MPV 7.5 (7.0-11.0) fL Neut % (Auto) 70.8 H (16.0-70.0) % Lymph % (Auto) 17.5 (9.0-44.0) % Baxter % (Auto) 9.1 H (0.0-8.0) % Eos % (Auto) 1.8 (0.0-4.0) % Baso % (Auto) 0.8 (0.0-2.0) % Neut # (Auto) 5.4 (1.8-7.7) th/mm3 Lymph # (Auto) 1.3 (1.0-4.8) th/mm3 Baxter # (Auto) 0.7 (0.0-0.9) th/mm3 Eos # (Auto) 0.1 (0.0-0.4) th/mm3 Baso # (Auto) 0.1 (0.0-0.2) th/mm3 WBC Differential . Differential Comment Auto diff final Sodium 137 140 (136-145) meq/L Potassium 4.3 3.6 (3.5-5.1) meq/L Chloride 100 103 (98-107) meq/L Carbon Dioxide 29.9 30.3 (21.0-32.0) meq/L Anion Gap 7 7 (5-15) meq/L BUN 28 H 28 H (7-18) mg/dL Creatinine 0.90 0.94 (0.60-1.30) mg/dL Estimated GFR 87 L 82 L (>89) mL/min Random Glucose 108 H 69 L (74-106) mg/dL Hemoglobin A1c (4.3-6.0) % Calcium 8.7 9.2 (8.5-10.1) mg/dL Magnesium 2.3 (1.5-2.5) mg/dL Total Bilirubin 0.9 (0.2-1.0) mg/dL AST 51 H (15-37) U/L ALT 52 (12-78) U/L Alkaline Phosphatase 105 (45-117) U/L Total Protein 7.3 (6.4-8.2) g/dL Albumin 3.7 (3.4-5.0) g/dL Triglycerides 116 (42-150) mg/dL Cholesterol 202 H (120-200) mg/dL LDL Cholesterol, Calc 102 H (0-99) mg/dL HDL Cholesterol 76.4 H (40.0-60.0) mg/dL Cholesterol/HDL Ratio 2.64 Ratio TSH 1.640 (0.358-3.740) uIU/mL Serum Alcohol Less than 3 (0-5) mg/dL 10/09/18 Range/Units 08:27 WBC (4.0-11.0) th/mm3 RBC (4.50-5.90) mil/mm3 Hgb (13.0-17.0) gm/dL Hct (39.0-51.0) % MCV (80.0-100.0) fL MCH (27.0-34.0) pg MCHC (32.0-36.0) % RDW (11.6-17.2) % Plt Count (150-450) th/mm3 MPV (7.0-11.0) fL Neut % (Auto) (16.0-70.0) % Lymph % (Auto) (9.0-44.0) % Baxter % (Auto) (0.0-8.0) % Eos % (Auto) (0.0-4.0) % Baso % (Auto) (0.0-2.0) % Neut # (Auto) (1.8-7.7) th/mm3 Lymph # (Auto) (1.0-4.8) th/mm3 Baxter # (Auto) (0.0-0.9) th/mm3 Eos # (Auto) (0.0-0.4) th/mm3 Baso # (Auto) (0.0-0.2) th/mm3 WBC Differential Differential Comment Sodium (136-145) meq/L Potassium (3.5-5.1) meq/L Chloride (98-107) meq/L Carbon Dioxide (21.0-32.0) meq/L Anion Gap (5-15) meq/L BUN (7-18) mg/dL Creatinine (0.60-1.30) mg/dL Estimated GFR (>89) mL/min Random Glucose (74-106) mg/dL Hemoglobin A1c 5.2 (4.3-6.0) % Calcium (8.5-10.1) mg/dL Magnesium (1.5-2.5) mg/dL Total Bilirubin (0.2-1.0) mg/dL AST (15-37) U/L ALT (12-78) U/L Alkaline Phosphatase (45-117) U/L Total Protein (6.4-8.2) g/dL Albumin (3.4-5.0) g/dL Triglycerides (42-150) mg/dL Cholesterol (120-200) mg/dL LDL Cholesterol, Calc (0-99) mg/dL HDL Cholesterol (40.0-60.0) mg/dL Cholesterol/HDL Ratio Ratio TSH (0.358-3.740) uIU/mL Serum Alcohol (0-5) mg/dL Discharge Plan Discharge Disposition Patient Disposition: 30 Still Patient Discharge Details Diagnosis: Chronic schizophrenia Physicians Team ED Provider: Faustina Bray ED Midlevel Provider: Yoselyn Ashley Primary Care Provider: UNKNOWN, Attending Provider: Reese Mitchell Other Providers: Reese Mitchell ; Utilizer, High Service Status ED Status: Left Department Discharge Information Discharge Date/Time: 10/08/18 10:55
[2018-10-07 14:24] LABS: Baso # (Auto) 0.1 th/mm3 (0.0-0.2); Baso % (Auto) 0.8 % (0.0-2.0); Eos # (Auto) 0.1 th/mm3 (0.0-0.4); Eos % (Auto) 1.8 % (0.0-4.0); Hematocrit 40.7 % (39.0-51.0); Hemoglobin 14.1 gm/dL (13.0-17.0); Lymph # (Auto) 1.3 th/mm3 (1.0-4.8); Lymph % (Auto) 17.5 % (9.0-44.0); Mean Corpuscular HGB Conc 34.6 % (32.0-36.0); Mean Corpuscular Hemoglobin 30.3 pg (27.0-34.0); Mean Corpuscular Volume 87.6 fL (80.0-100.0); Mean Platelet Volume 7.5 fL (7.0-11.0); Mono # (Auto) 0.7 th/mm3 (0.0-0.9); Mono % (Auto) 9.1 % (0.0-8.0); Neut # (Auto) 5.4 th/mm3 (1.8-7.7); Neut % (Auto) 70.8 % (16.0-70.0); Platelet Count 208 th/mm3 (150-450); Red Blood Count 4.65 mil/mm3 (4.50-5.90); Red Cell Distribution Width 15.6 % (11.6-17.2); White Blood Count 7.6 th/mm3 (4.0-11.0)
[2018-10-07 14:36] LABS: Albumin 3.7 g/dL (3.4-5.0); Anion Gap 7 meq/L (5-15); Aspartate Aminotransferase 51 U/L (15-37); Blood Urea Nitrogen 28 mg/dL (7-18); Calcium 8.7 mg/dL (8.5-10.1); Carbon Dioxide 29.9 meq/L (21.0-32.0); Chloride 100 meq/L (98-107); Glomerular Filtration Rate 87 mL/min (>89); Glucose,Random 108 mg/dL (74-106); Magnesium 2.3 mg/dL (1.5-2.5); Potassium 4.3 meq/L (3.5-5.1); Sodium 137 meq/L (136-145)
[2018-10-07 14:47] LABS: Alanine Aminotransferase 52 U/L (12-78); Alkaline Phosphatase 105 U/L (45-117); Total Protein 7.3 g/dL (6.4-8.2)
[2018-10-08] MEDS ORDERED: Aluminum/Magnesium/Simethacone Susp 30 ML UDC PO PRN (10:10)
[2018-10-08] MEDS ORDERED: Bisacodyl 10 MG Supp RECTAL PRN (10:10)
--- NOTE | 2018-10-08 13:54 | P.HPPSY ---
Provisional Diagnosis Admission Date: October 08, 2018 10:10 [place] I.: Schizophrenia Competence Certification of Person's Competence To Provide Express and Informed Consent I have personally examined Alejandro Davey, a person being served at [facility] on, October 08, 2018 1350. Express and informed consent means consent voluntarily given in writing, by a competent person, after sufficient explanation and disclosure of the subject matter involved to enable the person to make a knowing and willful decision without any element of force, fraud, deceit, duress, or other form of constraint or coercion. This person is 18 years of age or older, is not now known to be incompetent to consent to treatment with a guardian advocate, and does not have a health care surrogate or proxy currently making medical treatment decisions. I have found this person to be one of the following: [] Competent to provide express and informed consent, as defined above, for voluntary admission to this facility and is competent to provide express and informed consent for treatment. He/she has the consistent capacity to make well reasoned, willful, and knowing decisions concerning his or her medical or mental health treatment. The person fully and consistently understands the purpose of the admission for examination/placement and is fully capable of personally exercising all rights assured under [place] Incompetent to provide express and informed consent to voluntary admission, and this is incompetent to provide express and informed consent to treatment. The person must be transferred to involuntary status and a petition for a guardian advocate filed with the Circuit Court. [x] Refusing to provide express and informed consent to voluntary admission but is competent to provide express and informed consent for treatment. The person must be discharged or transferred to involuntary status. Form shall be completed within 24 hours of a person's arrival at the receiving facility and filed in the clinical record of each person: 1. Admitted on a voluntary basis 2. Permitted to provide express and informed consent to his/her own treatment 3. Allowed to transfer from involuntary to voluntary status 4. Prior to permitting a person to consent to his or her own treatment after having been previously found incompetent to consent to treatment. History of Present Illness Capacity: Has capacity History of Present Illness: The patient is 58-year-old man, domiciled with a friend in [place] , single, unemployed, with psychiatric history of schizophrenia, multiple psychiatric hospitalizations, last hospitalization was here in [place] in March 2018, he was discharged and olanzapine 10 mg twice daily, he is not in psychotropics right now, no established outpatient care, no previous suicide attempts, no significant medical history, who presents to the emergency department voluntarily. When asked why he is here, he states that his neighbor is threatening him and trying to hurt him. He stated that therefore, he came to the emergency department. Patient has flight of ideas on my exam. He is alert oriented person, place, time. He reports history of schizophrenia. He states he is not currently on any prescribed medications. He quit taking his psychiatric medications after his last admission which was in March. Patient denies any other medical complaints at this time. He does admit to hearing voices. He denies any suicidal ideations. Moderate severity.On initial examination in the ER the patient has very disorganized thoughts and appears to be having possible visual hallucinations and definitely responding to internal stimuli. He says that he is here because 1 of his neighbors has been running behind him with a knife kill him. He says that several people in his neighborhood are watching him, they have knife in the kitchen and they want to kill me. Patient is very disorganized, with Fahad loosening of associations, he is able to answer questions appropriately, but when he allowed reasonable idea he becomes quite tangential. He seems to be a little paranoid and internally preoccupied to he says that he has not been taking psychotropics for many years now. He was in olanzapine 10 mg before, but he stopped taking medications "because I did not need them anymore". The patient is fully oriented 3, no attention deficit, no fluctuation of consciousness. He is not aggressive or agitated. He reports good mood, denies anhedonia, denies hopelessness, denies helplessness. He agrees with being admitted and restart his psychotropics. He denies suicidal or homicidal ideations. Denies auditory or visual hallucinations. Denies illicit drug use, alcohol use. PPHx: psychiatric history of schizophrenia, multiple psychiatric hospitalizations, last hospitalization was here in [place] in March 2018, he was discharged and olanzapine 10 mg twice daily, he is not in psychotropics right now, no established outpatient care, no previous suicide attempts, PMHx: no significant medical history, Sustance Hx: Drugs and alcohol Family Hx: He denies family psychiatric history Social Hx: The patient was born and raised in [place], he lives with a roommate in [facility], single, no kids, and unemployed, supported by SSI - Inpatient Certification I certify that the inpatient services were ordered in accordance with Medicare regulations governing the order. This includes certification that hospital inpatient services are reasonable and necessary and in the case of services not specified as inpatient-only under 42 CFR 419.22(n), that they are appropriately provided as inpatient services in accordance to with the 2-midnight benchmark under 43 CFR 412.3(e) I certify that inpatient psychiatric hospital services are medically necessary. Evaluation and treatment and/or diagnostic testing are expected to improve the patient's condition. The patient needs on a daily basis, active treatment furnished directly by or requiring the supervision of inpatient psychiatric facility personnel. Estimated Total Length of Stay (Days): 7 Plans for Post Hospital Care: Home Review of Systems All other systems reviewed negative except as stated in HPI Psychiatric: Reports confusion, Reports hearing things others do not hear, Reports irritability, Reports mood swings, Reports paranoia PMFSH - History History Provided By: Patient - Tobacco History Second Hand Smoke Exposure: Yes Tobacco Use In Past 30 Days: Yes Smoking Status: Current every day smoker Tobacco Type: Cigarettes - Alcohol History How Often Do You Have a Drink Containing Alcohol: Never - Substance Use History Substance History: No History of Abuse - Travel History Recent Travel in the USA Within the Last 8 Weeks: No Recent Travel Out of the Country Within the Last 8 Weeks: No - Immunization History Tetanus Immunization: Unsure Hx Influenza Vaccine This Season: No Medications and Allergies Active Medications: Active Medications Al Hydrox/Mg Hydrox/Simethicone (Mag-Al Plus Susp Liq) 30 ml PO Q6H PRN PRN Reason: DYSPEPSIA Al Hydroxide/Mg Hydroxide (Milk Of Magnesia Liq) 30 ml PO Q12H PRN PRN Reason: Mild Constipation Bisacodyl (Dulcolax Supp) 10 mg RECTAL DAILY PRN PRN Reason: SEVERE CONSITIPATION Lactulose (Lactulose Liq) 30 ml PO DAILY PRN PRN Reason: SEVERE CONSITIPATION Olanzapine (Zyprexa Zydis Odt) 5 mg PO BID [facility] Last Admin: 10/08/18 12:11 Dose: 5 mg Senna/Docusate Sodium (Lindy-Colace) 1 tab PO BID [facility] Sennosides (Senokot) 17.2 mg PO Q12H PRN PRN Reason: Moderate Constipation Allergies Allergy/AdvReac Type Severity Reaction Status Date / Time No Known Allergies Allergy Severe PER Uncoded 09/30/07 19:26 PSYCHIATRIC ADMISSION ORDERS Home Medications Medication Instructions Recorded Confirmed Type No Known Home Medications 10/07/18 10/07/18 History Results - Labs CBC & Chem 7: 10/07/18 13:10 10/07/18 13:10 Labs: Laboratory Results - last 24 hr 10/07/18 10/07/18 13:10 13:10 WBC 7.6 RBC 4.65 Hgb 14.1 Hct 40.7 MCV 87.6 MCH 30.3 MCHC 34.6 RDW 15.6 Plt Count 208 MPV 7.5 Neut % (Auto) 70.8 H Lymph % (Auto) 17.5 Motley % (Auto) 9.1 H Eos % (Auto) 1.8 Baso % (Auto) 0.8 Neut # (Auto) 5.4 Lymph # (Auto) 1.3 Motley # (Auto) 0.7 Eos # (Auto) 0.1 Baso # (Auto) 0.1 WBC Differential . Differential Comment Auto diff final Sodium 137 Potassium 4.3 Chloride 100 Carbon Dioxide 29.9 Anion Gap 7 BUN 28 H Creatinine 0.90 Estimated GFR 87 L Random Glucose 108 H Calcium 8.7 Magnesium 2.3 Total Bilirubin 0.9 AST 51 H ALT 52 Alkaline Phosphatase 105 Total Protein 7.3 Albumin 3.7 TSH 1.640 Serum Alcohol Less than 3 Exam Vital signs: Vital Signs 10/07/18 22:52 10/08/18 02:00 10/08/18 06:49 Temperature 97.4 F L 98.0 F 97.8 F Pulse Rate 62 69 75 Respiratory Rate 18 18 Blood Pressure 105/63 92/83 L 126/76 Pulse Oximetry 98 97 98 10/08/18 13:35 Temperature 98.1 F Pulse Rate 97 H Respiratory Rate 18 Blood Pressure 111/69 Pulse Oximetry 97 Intake & Output 10/07/18 10/08/18 10/08/18 18:59 06:59 18:59 Weight 72.575 kg 62.4 kg Other: Weight On Admission 62.4 kg Narrative: Patient is a little bit agitated, but no catatonia, no gait disturbance, no withdrawal, no EPS - Constitutional no acute distress, mild distress - Routine HEENT Exam Head: Present: normocephalic Eye: Present: EOMI, PERRL ENT: Present: mucous membranes moist Mental Status Examination Appearance: Dirty, Disheveled Consciousness: Alert Orientation: x4 Motor Activity: Normal gait Speech: Unremarkable Language: Adequate Fund of Knowledge: Adequate Attention and Concentration: Adequate Memory: Unremarkable Mood: Angry, Oppositional Affect: Irritable Thought Process & Associations: Loose associations, Disorganized, Tangential Thought Content: Bizarre thinking Hallucination Type: None Delusion Type: Bizarre, Paranoid Suicidal Ideation: No Suicidal Plan: No Suicidal Intention: No Homicidal Ideation: No Homicidal Plan: No Homicidal Intention: No Insight: Poor Judgment: Poor Assessment and Plan - Assessment (1) Chronic schizophrenia Code(s): F20.9 - Schizophrenia, unspecified Status: Acute - Plan Plan: Patient presents quite disorganized, psychotic, with Fahad loosening of associations, internal preoccupation, incoherent speech, increased paranoia and reported visual hallucinations. Patient is oriented 3, he does not seem to be cognitively impaired. He has a psychiatric history of schizophrenia, multiple psychiatric hospitalizations, was hospitalized here in [place] in March 2018 no previous suicidal attempts, the patient admits that he has not been taking psychotropics. Due to the level of psychosis the patient is a high risk of danger to self. He needs psychiatric admission for stabilization and safety. Transferred to 2600 unit. We will start olanzapine 5 mg twice daily. Consult psychiatry for second opinion. dredge worker intervention for psychosocial assessment, collateral information, individual and group therapies, to coordinate safe discharge. Justification for Continued Inpatient Stay: No admission is indicated at this moment.
[2018-10-08] MEDS: Senna/Docusate Sodium 8.6/50 MG Tablet PO SCH (20:38)
[2018-10-09] MEDS: Senna/Docusate Sodium 8.6/50 MG Tablet PO SCH ×2 (08:05→20:01)
--- NOTE | 2018-10-09 09:12 | P.CONPSY ---
Provisional Diagnosis Admission Date: October 08, 2018 10:10 [place] I.: 1. Schizophrenia, unspecified type, acute exacerbation [place] II.: Deferred History of Present Illness Service: Psychiatry Consult date: 10/09/18 Requesting Physician: Neal Mcclain Reason for Consult: Second opinion for involuntary psychiatric hospitalization Primary Care Provider: UNKNOWN History of Present Illness: From Dr. Mcclain's H&P: The patient is 58-year-old man, domiciled with a friend in [place] , single, unemployed, with psychiatric history of schizophrenia, multiple psychiatric hospitalizations, last hospitalization was here in [place] in March 2018, he was discharged and olanzapine 10 mg twice daily, he is not in psychotropics right now, no established outpatient care, no previous suicide attempts, no significant medical history, who presents to the emergency department voluntarily. When asked why he is here, he states that his neighbor is threatening him and trying to hurt him. He stated that therefore, he came to the emergency department. Patient has flight of ideas on my exam. He is alert oriented person, place, time. He reports history of schizophrenia. He states he is not currently on any prescribed medications. He quit taking his psychiatric medications after his last admission which was in March. Patient denies any other medical complaints at this time. He does admit to hearing voices. He denies any suicidal ideations. Moderate severity.On initial examination in the ER the patient has very disorganized thoughts and appears to be having possible visual hallucinations and definitely responding to internal stimuli. He says that he is here because 1 of his neighbors has been running behind him with a knife kill him. He says that several people in his neighborhood are watching him, they have knife in the kitchen and they want to kill me. Patient is very disorganized, with Fahad loosening of associations, he is able to answer questions appropriately, but when he allowed reasonable idea he becomes quite tangential. He seems to be a little paranoid and internally preoccupied to he says that he has not been taking psychotropics for many years now. He was in olanzapine 10 mg before, but he stopped taking medications "because I did not need them anymore". The patient is fully oriented 3, no attention deficit, no fluctuation of consciousness. He is not aggressive or agitated. He reports good mood, denies anhedonia, denies hopelessness, denies helplessness. He agrees with being admitted and restart his psychotropics. He denies suicidal or homicidal ideations. Denies auditory or visual hallucinations. Denies illicit drug use, alcohol use. On my exam today, 10/09: Patient seen and examined with nurse. Chart reviewed. Case discussed with nursing staff who reports patient has been disorganized, posturing and responding to internal stimuli. On my examination today, the patient's speech is a rapid and staccato word salad. With the exception of a few questions detailed below, I cannot get him to engage in any sort of meaningful interview. He exhibits some clang associations. He denies SI/HI. Denies AVH but is frankly internally stimulated. He is somewhat intrusive as I try to interview other patients on the unit. He does indeed exhibit some posturing and stereotypies but there is no stupor or muteness or other signs of catatonia noted. No evidence of physical distress. Psychiatric interview is extremely limited because of patient's thought disorganization. I am unable to obtain any past psychiatric, family, chemical dependency or social history from the patient for the same reason. Inasmuch as patient will require a healthcare surrogate to consent for medications given his current mental state, I have endeavored to reach out the patient's aunt at the number listed in the EMR. Unfortunately, this is a wrong number, and there is no other contact information in the EMR. I have instructed the counselor to identify a potential healthcare surrogate. Review of Systems unobtainable due to mental condition PMFSH - History History Provided By: Patient - Tobacco History Second Hand Smoke Exposure: Yes Tobacco Use In Past 30 Days: Yes Smoking Status: Current every day smoker Tobacco Type: Cigarettes - Alcohol History How Often Do You Have a Drink Containing Alcohol: Never - Substance Use History Substance History: No History of Abuse - Substance Use Type Other Comment: Patient denies any substance use, past and/or present. - Travel History Recent Travel in the USA Within the Last 8 Weeks: No Recent Travel Out of the Country Within the Last 8 Weeks: No - Immunization History Tetanus Immunization: Unsure Hx Influenza Vaccine This Season: No Medications and Allergies Active Medications: Active Medications Al Hydrox/Mg Hydrox/Simethicone (Mag-Al Plus Susp Liq) 30 ml PO Q6H PRN PRN Reason: DYSPEPSIA Al Hydroxide/Mg Hydroxide (Milk Of Magnesia Liq) 30 ml PO Q12H PRN PRN Reason: Mild Constipation Bisacodyl (Dulcolax Supp) 10 mg RECTAL DAILY PRN PRN Reason: SEVERE CONSITIPATION Lactulose (Lactulose Liq) 30 ml PO DAILY PRN PRN Reason: SEVERE CONSITIPATION Olanzapine (Zyprexa Zydis Odt) 5 mg PO BID [facility] Last Admin: 10/09/18 08:05 Dose: 5 mg Senna/Docusate Sodium (Lindy-Colace) 1 tab PO BID [facility] Last Admin: 10/09/18 08:05 Dose: 1 tab Sennosides (Senokot) 17.2 mg PO Q12H PRN PRN Reason: Moderate Constipation Allergies Allergy/AdvReac Type Severity Reaction Status Date / Time No Known Allergies Allergy Severe PER Uncoded 09/30/07 19:26 PSYCHIATRIC ADMISSION ORDERS Home Medications Medication Instructions Recorded Confirmed Type No Known Home Medications 10/07/18 10/07/18 History Exam Vital signs: Vital Signs 10/08/18 13:35 10/09/18 05:53 Temperature 98.1 F 97.2 F L Pulse Rate 97 H 77 Respiratory Rate 18 18 Blood Pressure 111/69 125/70 Pulse Oximetry 97 98 Intake & Output 10/08/18 10/09/18 10/09/18 18:59 06:59 18:59 Weight 62.4 kg Other: Weight On Admission 62.4 kg Narrative: Physical examination completed by ED provider. On my examination today, the patient appears to be in no acute physical distress. Besides the motor abnormalities noted above, no other abnormalities noted. Labs and vital signs reviewed: Laboratory Tests 10/07/18 10/07/18 10/09/18 13:10 13:10 08:27 WBC 7.6 Hgb 14.1 Plt Count 208 Sodium 140 Potassium 3.6 Chloride 103 Carbon Dioxide 30.3 BUN 28 H Creatinine 0.94 Estimated GFR 82 L Random Glucose 69 L AST 51 H ALT 52 Alkaline Phosphatase 105 TSH 1.640 Serum Alcohol Less than 3 Mental Status Examination Appearance: Disheveled, Malodorous Consciousness: Alert Orientation: Person Motor Activity: Normal gait Speech: Rapid Language: Word salad Mood: Other (Unable to assess due to thought disorganization) Affect: Irritable Thought Process & Associations: Disorganized Hallucination Type: Other (Denies AVH but appears frankly internally stimulated) Delusion Type: Other (Unable to assess due to thought disorganization) Suicidal Ideation: No Suicidal Plan: No Suicidal Intention: No Homicidal Ideation: No Homicidal Plan: No Homicidal Intention: No Insight: Poor Judgment: Poor Assessment and Plan - Assessment (1) Chronic schizophrenia Code(s): F20.9 - Schizophrenia, unspecified Status: Acute - Plan Plan: Given the circumstances of the patient's presentation here and his presentation on my examination today, I concur with Dr. Mcclain that the patient meets criteria for involuntary psychiatric hospitalization under the Vickers act. Patient is at obvious risk for self care deficit in the setting of his decompensated psychosis. I have completed the second opinion paperwork. I will be assuming care of the patient's case. The patient is not presently capacitated to consent for psychotropic medications, and I have requested a healthcare surrogate and guardian advocate. Psychotropic medications will be placed on hold until valid consent can be obtained. Continue to monitor on the high acuity unit. Continue other medications and care as ordered. Justification for Continued Inpatient Stay: Impairment in reality construction. Impairment in self-care. High risk for decompensation and less restrictive environment. Discharge Planning: Pending psychiatric stabilization Request Healthcare Surrogate/Guardian Advocate?: Yes
[2018-10-09 09:32] LABS: Calcium 9.2 mg/dL (8.5-10.1); Carbon Dioxide 30.3 meq/L (21.0-32.0); Potassium 3.6 meq/L (3.5-5.1)
[2018-10-09 09:36] LABS: Chol/HDL Ratio 2.64 Ratio; HDL Cholesterol 76.4 mg/dL (40.0-60.0)
--- NOTE | 2018-10-09 11:22 | P.DIET ---
Nutritional Evaluation Type of nutrition evaluation: initial Nutrition screening: Weight Loss > 10 lbs Subjective Oral Diet Tolerance Assessment Indicates: Chewing problems Subjective Comments: 100% po intake for breakfast today. Previous admission here 03/29/18 wt 56.7 kg. Objective - Diagnosis Schizophrenia - Objective % IBW: 72 Body Weight Used for Calculations: Actual (62.4 kg) Energy Needs - Lower Range (kCal/kg): 35 Energy Needs - Upper Range (kCal/kg): 40 Lower Limit kCal/kg (kCals): 2,184 Upper Limit kCal/kg (kCals): 2,496 Lower Limit Protein Factor (Grams per Kg): 1.3 Upper Limit Protein Factor (Grams per Kg): 1.5 Lower Protein Needs (Protein): 81 Upper Protein Needs (Protein): 94 Dietitian Reviewed in Medical Record: Current diet, Curent medications, Intake & Output, Labs, Medical history Diet Order: Regular, Safety Oral Diet Intake Amount: Excellent 90%+ Objective Comments: PMH includes: Schizophrenia A1C pending Meds include: Zyprexa Assessment Assessment: Pt is a nutrition screen for unplanned wt oss more than 10-lb. Pt's current wt is 5.5 kg greater than previous admission wt of 56.7 kg(03/29/18). Pt does have a low BMI 17.7. Pt is currently tolerating diet w/100% po intake. Send Ensure Enlive TID for additional nutrition. Based on pt's assessed needs, plan to send double portions. Dietitian to follow-up for oral nutrition supplement acceptance. Recommendations: 1. Pt's current wt is 5.5 kg greater than previous admission wt of 56.7 kg() 2. Send Ensure Enlive TID for additional nutrition 3. Based on pt's assessed needs, plan to send double portions 4. Dietitian to follow-up for oral nutrition supplement acceptance Dietitian to Monitor: Lab values, Supplement acceptance, Diet tolerance, Weight change, PO Intake, Medical course
[2018-10-09 11:44] LABS: Hemoglobin A1c 5.2 % (4.3-6.0)
--- NOTE | 2018-10-10 08:49 | P.PNPSY ---
Subjective Remarks: Patient seen and examined with nurse. Chart reviewed. Case discussed with nursing staff. Patient noted to be responding to internal stimuli. On my examination today, the patient is somewhat irritable. Speech is a little bit more comprehensible today, although much of it remains word salad. From what I can gather, the patient is concerned about obtaining his shoes. I have asked the nurse to have staff provide these to the patient so long as they are safe for the unit. He continues to exhibit some posturing but no muteness or stupor. He remains internally stimulated. He has no physical complaints. He is able to provide a name of sister, Magy Davey and a phone number . However, when I try to call this number, it appears to be nonfunctional. Vital Signs Temp Pulse Resp BP Pulse Ox 10/10/18 06:00 97.3 F L 143/63 H 10/09/18 15:41 98.2 F 74 18 139/63 99 Labs reviewed. No new labs. Review of Systems unobtainable due to mental condition Mental Status Examination Appearance: Disheveled Consciousness: Alert Orientation: Person Motor Activity: Normal gait Speech: Rapid Language: Word salad (Some comprehensible speech) Fund of Knowledge: Adequate Attention and Concentration: Adequate Memory: Unremarkable Mood: Anxious, Irritable Affect: Irritable Thought Process & Associations: Disorganized Thought Content: Bizarre thinking Hallucination Type: Other (Internally stimulated) Delusion Type: Other (Unable to assess due to thought disorganization) Suicidal Ideation: No Homicidal Ideation: No Insight: Poor Judgment: Poor Assessment and Plan - Assessment (1) Chronic schizophrenia Code(s): F20.9 - Schizophrenia, unspecified Status: Acute - Plan Plan: Psychotropic medications remain on hold for lack of anyone to provide consent. We will continue to try to identify a healthcare surrogate for this patient. In the meantime, continue to monitor on the high acuity unit. Continue other care as ordered. Justification for Continued Inpatient Stay: Impairment in reality construction. High risk for decompensation and less restrictive environment. Discharge Planning: Pending psychiatric stabilization. Request Healthcare Surrogate/Guardian Advocate?: Yes
[2018-10-10] MEDS: Senna/Docusate Sodium 8.6/50 MG Tablet PO SCH ×2 (09:04→20:51)
[2018-10-11] MEDS: Senna/Docusate Sodium 8.6/50 MG Tablet PO SCH ×2 (08:30→20:00)
--- NOTE | 2018-10-11 09:13 | P.TTN ---
- Patient Problems Problems: 1. Discharge planning 2. Medication compliance 3. Knowledge deficit 4. Lack of coping skills - Progress Toward Goals Provider Present: Dr. Joss Mitchell (Patient remains extremely psychotic and in need of further stabilization.) Psychiatric Counselors Present: Nathen Parra Jr., [facility] (Counselor has been unable to obtain any collateral information, despite efforts at contacting Curry Dutton act and family. Counselor has been unable to discuss a safe discharge plan due to level of psychosis.) Group Spec/RT/OT/[place] Present: SERG Yeung (Patient attends select groups.) - Documentation Teaching Recipient: Patient
--- NOTE | 2018-10-11 10:03 | P.PNPSY ---
Subjective Remarks: Patient seen and examined with nurse. Chart reviewed. Case discussed with nursing staff. Patient reportedly slept well and seemed a little more lucid this morning. Case discussed in treatment team. On my examination today, patient initially seems more appropriate in conversation, and he is able to provide coherent answers to basic questions. However, this period of lucidity is quite transient, and patient rapidly reverts to severely disorganized psychosis. He resumes word salad speech and again exhibits odd, ritualistic posturing. He seems to become quite irritable with our inability to comprehend his speech. No physical complaints. I once again tried to reach sister at number patient provided, but this remains non-functional. Vital Signs Temp Pulse Resp BP Pulse Ox 10/11/18 05:24 98.0 F 73 18 150/68 H 98 10/10/18 17:21 98.6 F 104 H 16 140/85 96 Intake and Output 10/10/18 10/11/18 10/11/18 22:59 06:59 14:59 Intake Total 240 / 240 Balance 240 / 240 Intake: Oral 240 / 240 Labs reviewed. No new labs. Review of Systems unobtainable due to mental condition Mental Status Examination Appearance: Disheveled Consciousness: Alert Orientation: Person Motor Activity: Normal gait, Other (Posturing) Speech: Rapid Language: Word salad (Initially coherent but rapidly degenerate into word salad) Fund of Knowledge: Adequate Attention and Concentration: Adequate Memory: Unremarkable Mood: Irritable Affect: Irritable Thought Process & Associations: Disorganized Thought Content: Bizarre thinking, Delusional Hallucination Type: Other (Internally stimulated) Delusion Type: Paranoid Suicidal Ideation: No Homicidal Ideation: No Insight: Poor Judgment: Poor Assessment and Plan - Assessment (1) Chronic schizophrenia Code(s): F20.9 - Schizophrenia, unspecified Status: Acute - Plan Plan: Patient remains incapacitated to consent for medication/treatment. I tried to engage him in a discussion of R/B/A of meds during his brief lucid interval, but even at that time, patient could not enter into treatment discussion or understand and negotiate treatment options. We still do not have a healthcare surrogate, and so unfortunately psychotropic medications remain on hold. Continue to monitor on the inpatient psychiatric unit. Continue other medications and care as ordered. Justification for Continued Inpatient Stay: Impairment in reality construction. High risk for decompensation and less restrictive environment. Discharge Planning: Pending psychiatric stabilization. Request Healthcare Surrogate/Guardian Advocate?: Yes
[2018-10-12] MEDS: Senna/Docusate Sodium 8.6/50 MG Tablet PO SCH ×2 (08:13→20:12)
--- NOTE | 2018-10-12 16:12 | P.PNPSY ---
Subjective Remarks: Reviewed electronic medical records and discussed case with staff. Follow-up was conducted in the patient's room with KATHI Sinclair and Christopher licensed psychologist director present. Patient is showing some lucidity today. He was able to state that he was in [facility], tell me the date, and name the location is [place]. He also informed us that his last visit here was in March which was accurate. Therefore, I was able to obtain a signature on his consent form to start his medications. He still displays internal stimulation at times and bizarre behavior. Mental Status Examination Appearance: Disheveled Consciousness: Alert Orientation: Person Motor Activity: Normal gait, Other (Posturing) Speech: Rapid Language: Word salad (Initially coherent but rapidly degenerate into word salad) Fund of Knowledge: Adequate Attention and Concentration: Adequate Memory: Unremarkable Mood: Irritable Affect: Irritable Thought Process & Associations: Disorganized Thought Content: Bizarre thinking, Delusional Hallucination Type: Other (Internally stimulated) Delusion Type: Paranoid Suicidal Ideation: No Suicidal Plan: No Suicidal Intention: No Homicidal Ideation: No Homicidal Plan: No Homicidal Intention: No Insight: Poor Judgment: Poor Assessment and Plan - Assessment (1) Chronic schizophrenia Code(s): F20.9 - Schizophrenia, unspecified Status: Acute - Plan Plan: Patient will be reevaluated by the attending psychiatrist. Continue with current treatment plan. Patient signed consents during a period of lucidity. He will be started on psychotropic medications this evening. Justification for Continued Inpatient Stay: Moving this patient to a less restrictive environment would likely result in decompensation. Request Healthcare Surrogate/Guardian Advocate?: Yes
[2018-10-12] MEDS: LORazepam 1 MG Tablet PO SCH (17:01)
[2018-10-12] MEDS: Haloperidol 5 MG Tablet PO SCH (20:14)
[2018-10-13] MEDS: Senna/Docusate Sodium 8.6/50 MG Tablet PO SCH ×2 (08:15→21:16)
[2018-10-13] MEDS: LORazepam 1 MG Tablet PO SCH ×3 (08:16→17:22)
[2018-10-13] MEDS: Haloperidol 5 MG Tablet PO SCH ×2 (08:16→21:16)
--- NOTE | 2018-10-13 09:53 | P.PNPSY ---
Subjective Remarks: Reviewed electronic medical records and discussed case with staff. Follow-up was conducted in the hallway. Patient is disorganized, rambling about a neighbor and situation with this living environment. His speech is of low volume and tone making it difficult to understand him. He has a delusion that others are out to harm him. Unable to focus or answer questions. Dishelved and very paranoid. He states that he has not been taking his medications prior to admission. He is easily redirected and cooperative. Review of Systems All other systems reviewed negative except as stated in HPI Mental Status Examination Appearance: Disheveled Consciousness: Alert Orientation: Person Motor Activity: Normal gait, Other (Posturing) Speech: Rapid Language: Word salad (Initially coherent but rapidly degenerate into word salad) Fund of Knowledge: Adequate Attention and Concentration: Adequate Memory: Unremarkable Mood: Anxious, Irritable Affect: Irritable Thought Process & Associations: Disorganized (rambling about a neighbor ) Thought Content: Bizarre thinking, Delusional Hallucination Type: Other (Internally stimulated) Delusion Type: Paranoid Suicidal Ideation: No Suicidal Plan: No Suicidal Intention: No Homicidal Ideation: No Homicidal Plan: No Homicidal Intention: No Insight: Poor Judgment: Poor Assessment and Plan - Assessment (1) Chronic schizophrenia Code(s): F20.9 - Schizophrenia, unspecified Status: Acute - Plan Plan: Patient will be reevaluated by the attending psychiatrist. Continue with current treatment plan. Justification for Continued Inpatient Stay: Moving patient to a less restrictive environment may result in his decompensation. Request Healthcare Surrogate/Guardian Advocate?: Yes
--- NOTE | 2018-10-14 08:49 | P.PNPSY ---
Subjective Remarks: Patient seen and examined with nurse. Chart reviewed. Case discussed with nursing staff. Patient noted to be seclusive but medication compliant. Nurse practitioner over the weekend was able to obtain medication consent for patient and has started the patient on Zyprexa Zydis, Haldol and scheduled Ativan. On my examination today, the patient is much more organized. His thought process remains a little tangential, but his speech is overall much more comprehensible. He complains of feeling somewhat nervous and seems a little bit paranoid. He denies any audiovisual hallucinations. Denies any suicidal or homicidal ideation. He continues to exhibit some posturing, and when I asked the patient why he does so he tells me it helps him relax. Denies any side effects from medications. No physical complaints. Vital Signs Temp Pulse Resp BP Pulse Ox 10/14/18 06:00 97.8 F 82 16 123/68 100 10/13/18 16:58 97.9 F 86 18 90/66 L 100 Intake and Output 10/13/18 10/14/18 10/14/18 22:59 06:59 14:59 Other: Weight 67.8 kg Labs reviewed. No new labs. Review of Systems All other systems reviewed negative except as stated in HPI (Limitation: Psychosis) Mental Status Examination Appearance: Disheveled (Grooming is improving) Consciousness: Alert Orientation: Person Motor Activity: Normal gait, Other (Besides posturing, no motor abnormalities. No hand tremor, no cogwheeling, no dystonia, no dyskinesia.) Speech: Rapid Language: Other (Much more comprehensible) Fund of Knowledge: Adequate Attention and Concentration: Adequate Memory: Unremarkable Mood: Anxious Affect: Anxious Thought Process & Associations: Tangential Thought Content: Bizarre thinking, Delusional Hallucination Type: Other (Remains a little internally preoccupied) Delusion Type: Paranoid Suicidal Ideation: No Suicidal Plan: No Suicidal Intention: No Homicidal Ideation: No Homicidal Plan: No Homicidal Intention: No Insight: Poor Judgment: Poor Assessment and Plan - Assessment (1) Chronic schizophrenia Code(s): F20.9 - Schizophrenia, unspecified Status: Acute - Plan Plan: Titrate Zyprexa to 5 mg in the morning and 10 mg at bedtime for management of psychosis. Continue Haldol as ordered, although we may try to taper and discontinue this to avoid antipsychotic polypharmacy once the patient is more stable. Likewise, to consider tapering and discontinuing Ativan. Continue to monitor on the inpatient unit. Continue other medications and care as ordered. Justification for Continued Inpatient Stay: Medication changes. Impairment in reality construction. High risk for decompensation and less restrictive environment. Discharge Planning: Pending psychiatric stabilization. Request Healthcare Surrogate/Guardian Advocate?: No
[2018-10-14] MEDS: LORazepam 1 MG Tablet PO SCH ×3 (09:12→17:36)
[2018-10-14] MEDS: Senna/Docusate Sodium 8.6/50 MG Tablet PO SCH ×2 (09:13→20:56)
[2018-10-14] MEDS: Haloperidol 5 MG Tablet PO SCH ×2 (09:13→20:56)
[2018-10-14] MEDS ORDERED: OLANZapine 10 MG ODT Tablet PO SCH (21:00)
[2018-10-15] MEDS: LORazepam 1 MG Tablet PO SCH ×2 (08:18→12:21)
[2018-10-15] MEDS: Haloperidol 5 MG Tablet PO SCH ×2 (08:19→20:18)
[2018-10-15] MEDS: Senna/Docusate Sodium 8.6/50 MG Tablet PO SCH ×2 (08:20→20:17)
--- NOTE | 2018-10-15 10:02 | P.TTN ---
- Patient Problems Problems: 1. Discharge planning 2. Medication compliance 3. Knowledge deficit 4. Lack of coping skills - Progress Toward Goals Provider Present: Dr. Joss Mitchell (Patient appears to be improving slightly, patient still meets criteria for inpatient hospitalization, patient remains for further stabilization) Psychiatric Counselors Present: Nathen Parra Jr., [facility] (Counselor will meet with the patient to discuss a safe discharge plan when the patient is lucid.) Group Spec/RT/OT/[place] Present: SERG Yeung (Patient does attend select groups at this time.) - Documentation Teaching Recipient: Patient
--- NOTE | 2018-10-15 11:16 | P.PNPSY ---
Subjective Remarks: Patient seen and examined with nurse. Chart reviewed. Case discussed with nursing staff. Patient's thought process is noted to be growing more linear. Case discussed in treatment team. On my exam, patient continues to improve. Thought process is indeed more linear today. He remains a little internally preoccupied. He tells me that he does not want to return to stay where he was prior to admission because his ?roommate was a criminal and he did not feel safe there. I have asked the counselor to explore placement. Denies side effects from medications. No physical complaints. Vital Signs Temp Pulse Resp BP Pulse Ox 10/15/18 06:00 97.7 F 86 18 116/68 98 10/14/18 15:54 98.1 F 83 18 110/62 99 Labs reviewed. No new labs. Review of Systems All other systems reviewed negative except as stated in HPI Mental Status Examination Appearance: Disheveled (Grooming is somewhat improving) Consciousness: Alert Orientation: Person Motor Activity: Normal gait, Other (No motoric abnormalities noted besides some mild posturing still.) Speech: Rapid Language: Other (More coherent) Fund of Knowledge: Adequate Attention and Concentration: Adequate Memory: Unremarkable Mood: Anxious Affect: Anxious Thought Process & Associations: Tangential (More organized) Thought Content: Bizarre thinking, Delusional Hallucination Type: Other (Ongoing internal stimulation) Delusion Type: Paranoid (Decreasing) Suicidal Ideation: No Homicidal Ideation: No Insight: Poor Judgment: Poor Assessment and Plan - Assessment (1) Chronic schizophrenia Code(s): F20.9 - Schizophrenia, unspecified Status: Acute - Plan Plan: Titrate Zyprexa to 5 mg in the morning and 15 mg at bedtime to target residual psychiatric symptoms. Continue Haldol as ordered. Taper Ativan to 0.5 mg 3 times daily to avoid excessive sedation from increasing dose of Zyprexa in combination with Ativan. Continue to monitor on high acuity unit. Continue other medications and care as ordered. Justification for Continued Inpatient Stay: Medication changes. Resolving impairments in reality construction. High risk for decompensation in less restrictive environment. Discharge Planning: Possible placement. Discussed with counselor. Request Healthcare Surrogate/Guardian Advocate?: No
[2018-10-15] MEDS: LORazepam 0.5 MG Tablet PO SCH ×3 (14:31→18:14)
--- NOTE | 2018-10-15 15:41 | ECG ---
Date Performed: 10/14/2018 Time Performed: 13:30:20 PTAGE: 58 years EKG: Sinus rhythm POSSIBLE RIGHT VENTRICULAR CONDUCTION DELAY BORDERLINE ECG NO PREVIOUS TRACING DOCTOR: Declan Mclain Interpretating Date/Time 10/15/2018 15:38:51
--- NOTE | 2018-10-15 16:05 | P.DIET ---
Nutritional Evaluation Type of nutrition evaluation: initial Nutrition screening: Weight Loss > 10 lbs Subjective Oral Diet Tolerance Assessment Indicates: Chewing problems Subjective Comments: Previous admission here 03/29/18 wt 56.7 kg. Objective - Diagnosis Schizophrenia - Objective % IBW: 72 Body Weight Used for Calculations: Actual (62.4 kg) Energy Needs - Lower Range (kCal/kg): 35 Energy Needs - Upper Range (kCal/kg): 40 Lower Limit kCal/kg (kCals): 2,184 Upper Limit kCal/kg (kCals): 2,496 Lower Limit Protein Factor (Grams per Kg): 1.3 Upper Limit Protein Factor (Grams per Kg): 1.5 Lower Protein Needs (Protein): 81 Upper Protein Needs (Protein): 94 Dietitian Reviewed in Medical Record: Current diet, Curent medications, Intake & Output, Labs, Medical history Diet Order: Regular, Safety Oral Diet Intake Amount: Excellent 90%+ Objective Comments: PMH includes: Schizophrenia A1C 5.2%, random glucose 108 69, total chol 202, LDL 102, HDL 76.4 Meds include: Zyprexa Assessment Assessment: Pt receiving double portions and ensure enlive TID. Pt consuming 100% for most meals on avrg and drinking 100% of his supplements. Pt is tolerating all foods and supplements well. Wts noted, CBW = 67.8kg. Dietitian to follow as needed. Brought forward: Pt is a nutrition screen for unplanned wt loss more than 10- lb. Pt's current wt is 5.5 kg greater than previous admission wt of 56.7 kg(03/29) Recommendations: 1. Pt's current wt is 5.5 kg greater than previous admission wt of 56.7 kg() 2. Continue regular diet w/ double portions and Ensure Enlive TID. 3. Dietitian to follow as needed Dietitian to Monitor: Lab values, Supplement acceptance, Weight change, PO Intake, Medical course
[2018-10-15] MEDS ORDERED: OLANZapine 15 MG ODT Tablet PO SCH (21:00)
[2018-10-16] MEDS: Senna/Docusate Sodium 8.6/50 MG Tablet PO SCH ×2 (08:48→20:38)
[2018-10-16] MEDS: Haloperidol 5 MG Tablet PO SCH (08:48)
[2018-10-16] MEDS: LORazepam 0.5 MG Tablet PO SCH ×3 (08:48→17:14)
--- NOTE | 2018-10-16 09:57 | P.PNPSY ---
Subjective Remarks: Patient seen and examined with nurse. Chart reviewed. Case discussed with nursing staff. Patient continues to respond to internal stimuli per nursing notes. I see it noted that patient's temp and SpO2 could not be obtained because of significant tremor. On my exam, patient is more organized. He does still exhibit some posturing and internal stimulation but otherwise is improving. He has no reported side effects from medications. He does have perhaps some very mild cogwheeling on exam but otherwise no signs of EPS. No physical complaints. Vital Signs Temp Pulse Resp BP Pulse Ox 10/16/18 05:52 71 18 119/72 10/15/18 18:33 97.5 F L 84 18 104/58 L 97 Intake and Output 10/15/18 10/16/18 10/16/18 22:59 06:59 14:59 Other: Date of Last Bowel Movement 10/15/18 Labs reviewed. Review of Systems All other systems reviewed negative except as stated in HPI (Limitation: Poor historian) Mental Status Examination Appearance: Disheveled (Grooming is somewhat improving) Consciousness: Alert Orientation: Person Motor Activity: Normal gait, Other (No hand tremor. Mild cogwheeling. No dystonias or dyskinesias noted. Some ongoing posturing. No motor abnormalities noted otherwise.) Speech: Rapid Language: Other (Again more coherent) Fund of Knowledge: Adequate Attention and Concentration: Adequate Memory: Unremarkable Mood: Anxious Affect: Anxious Thought Process & Associations: Tangential (Continues to grow more organized) Thought Content: Bizarre thinking, Delusional Hallucination Type: Other (Ongoing internal stimulation) Delusion Type: Paranoid (Decreasing) Suicidal Ideation: No Homicidal Ideation: No Insight: Poor Judgment: Poor Assessment and Plan - Assessment (1) Chronic schizophrenia Code(s): F20.9 - Schizophrenia, unspecified Status: Acute - Plan Plan: Titrate Zyprexa to 5 mg in the morning and 20 mg at bedtime to target residual psychotic symptoms. I will discontinue patient's oral Haldol as this is the most likely culprit in reported tremor. My plan will be to further titrate Zyprexa to make up for discontinuation of Haldol. I will also make Cogentin available as needed for any EPS. Continue Ativan as ordered for now, but consider tapering and discontinuing this medication. Continue to monitor on the inpatient unit. Continue other medications and care as ordered. Patient is agreeable to remaining on the unit voluntarily and is now capacitated to sign in voluntarily. Voluntary status. Justification for Continued Inpatient Stay: Medication changes. Risk for decompensation in less restrictive environment. Impairment in reality construction. Discharge Planning: Pending psychiatric stabilization. Request Healthcare Surrogate/Guardian Advocate?: No
[2018-10-16] MEDS ORDERED: Benztropine Inj 2 MG/2 ML Ampul IM PRN (09:58)
[2018-10-16] MEDS: OLANZapine 20 MG Tab.Rapdis PO SCH (20:39)
[2018-10-17] MEDS: Senna/Docusate Sodium 8.6/50 MG Tablet PO SCH ×2 (08:03→20:05)
[2018-10-17] MEDS: LORazepam 0.5 MG Tablet PO SCH ×2 (08:04→20:05)
--- NOTE | 2018-10-17 10:00 | P.PNPSY ---
Subjective Remarks: Patient seen and examined with nurse. Chart reviewed. Case discussed with nursing staff who reports patient continues to improve with medication adjustments. He is noted to be smiling more. On my examination today, the patient continues to exhibit some posturing. He scurries around the unit in a somewhat furtive manner, and some ongoing paranoia is possible. He tells me "I want to stay here as long as I can. I'll try to get along with everybody in here." Remains somewhat internally preoccupied. Denies side effects from meds. No physical complaints. Vital Signs Temp Pulse Resp BP Pulse Ox 10/17/18 05:21 97.4 F L 89 18 130/62 97 10/16/18 16:03 98.1 F 80 18 112/67 98 Intake and Output 10/16/18 10/17/18 10/17/18 22:59 06:59 14:59 Other: Date of Last Bowel Movement 10/15/18 Labs reviewed. No new labs. Review of Systems All other systems reviewed negative except as stated in HPI (Limitation: Poor historian) Mental Status Examination Appearance: Disheveled (Grooming is improving. Patient allowed his clothes to be laundered.) Consciousness: Alert Orientation: Person Motor Activity: Normal gait, Other (No motor abnormalities noted) Speech: Rapid Language: Other (Growing more coherent) Fund of Knowledge: Adequate Attention and Concentration: Adequate Memory: Unremarkable Mood: Anxious Affect: Anxious Thought Process & Associations: Tangential (Continues to grow more organized) Thought Content: Bizarre thinking, Delusional Hallucination Type: Other (Less internally preoccupied) Delusion Type: Paranoid (Some ongoing paranoia is suspected) Suicidal Ideation: No Homicidal Ideation: No Insight: Poor Judgment: Poor Assessment and Plan - Assessment (1) Chronic schizophrenia Code(s): F20.9 - Schizophrenia, unspecified Status: Acute - Plan Plan: Titrate Zyprexa to 10 mg in the morning and 20 mg at bedtime to target residual psychiatric symptoms. Taper Ativan to 0.5 mg twice daily with plans for ongoing taper to discontinuation. Continue to monitor on the inpatient unit. Continue other medications and care as ordered. Justification for Continued Inpatient Stay: Medication changes. Impairment in reality construction. High risk for decompensation in less restrictive environment. Discharge Planning: Pending psychiatric stabilization. Possible placement. Case discussed with counselor. Request Healthcare Surrogate/Guardian Advocate?: No
[2018-10-17] MEDS: OLANZapine 20 MG Tab.Rapdis PO SCH (20:05)
[2018-10-18] MEDS: OLANZapine 10 MG ODT Tablet PO SCH (09:02)
[2018-10-18] MEDS: LORazepam 0.5 MG Tablet PO SCH ×3 (09:03→21:00)
[2018-10-18] MEDS: Senna/Docusate Sodium 8.6/50 MG Tablet PO SCH ×2 (09:03→20:36)
--- NOTE | 2018-10-18 09:13 | P.TTN ---
- Patient Problems Problems: 1. Discharge planning 2. Medication compliance 3. Knowledge deficit 4. Lack of coping skills - Progress Toward Goals Provider Present: Dr. Joss Mitchell (Dr. Mitchell is titrating medications, patient remains for further stabilization.) Psychiatric Counselors Present: Nathen Parra Jr., [facility] (Counselor is waiting for the patient to stabilize, anticipating the patient will be stable enough to be interviewed by an assisted living facility early next week to arrange for safe discharge.) Group Spec/RT/OT/[place] Present: SERG Yeung (Patient does attend select groups at this time.), ETHEL Myers (Patient does not come to groups at this time.) - Documentation Teaching Recipient: Patient
--- NOTE | 2018-10-18 10:14 | P.PNPSY ---
Subjective Remarks: Patient seen and examined with nurse. Chart reviewed. Case discussed with nursing staff. Case discussed in treatment team. On my examination today, patient continues to improve. His speech is more comprehensible and he is exhibiting less posturing. He denies audiovisual hallucinations. No SI or HI. Denies side effects from medications. No physical complaints. Remains agreeable to assisted living placement, which we will pursue once his psychiatric condition has stabilized adequately to begin presenting patient's case to facilities. Vital Signs Temp Pulse Resp BP Pulse Ox 10/18/18 05:54 97.7 F 63 18 107/67 96 10/17/18 17:40 98.0 F 83 18 134/79 96 Intake and Output 10/18/18 10/18/18 10/18/18 06:59 14:59 22:59 Intake Total 240 / 240 Balance 240 / 240 Intake: Oral 240 / 240 Labs reviewed. No new labs. Review of Systems All other systems reviewed negative except as stated in HPI (Limitation: Poor historian) Mental Status Examination Appearance: Other (Fair grooming. Patient did shower today per nursing staff.) Consciousness: Alert Orientation: Person Motor Activity: Normal gait, Other (Some mild posturing but no other motor abnormalities noted.) Speech: Rapid Language: Other (More comprehensible) Fund of Knowledge: Adequate Attention and Concentration: Adequate Memory: Unremarkable Mood: Appropriate Affect: Appropriate Thought Process & Associations: Other (Organization is improving.) Thought Content: Bizarre thinking (Mild) Hallucination Type: None, Other (Less internally preoccupied) Delusion Type: None, Paranoid (Some ongoing paranoia is suspected) Suicidal Ideation: No Homicidal Ideation: No Insight: Poor Judgment: Poor Assessment and Plan - Assessment (1) Chronic schizophrenia Code(s): F20.9 - Schizophrenia, unspecified Status: Acute - Plan Plan: Continue Zyprexa 10 mg in the morning and 20 mg at bedtime for management of patient's psychosis. I will taper Ativan to 0.25 mg twice daily with plans for discontinuation. Continue to monitor on the inpatient unit. Continue other medications and care as ordered. Justification for Continued Inpatient Stay: Medication changes. High risk for decompensation in less restrictive environment. Discharge Planning: Placement pending further psychiatric stabilization Request Healthcare Surrogate/Guardian Advocate?: No
[2018-10-18] MEDS: OLANZapine 20 MG Tab.Rapdis PO SCH (20:37)
[2018-10-19] MEDS: OLANZapine 10 MG ODT Tablet PO SCH (08:48)
[2018-10-19] MEDS: Senna/Docusate Sodium 8.6/50 MG Tablet PO SCH ×2 (08:48→20:18)
[2018-10-19] MEDS: LORazepam 0.5 MG Tablet PO SCH ×2 (08:48→20:18)
--- NOTE | 2018-10-19 16:26 | P.PNPSY ---
Subjective Remarks: Reviewed electronic medical records and discussed case with staff. Follow-up was conducted in the hallway with AKTHI Brothers present. She reports patient has been compliant with his medications and has had no behavioral issues today. He did shower today. When asked patient how he is feeling he states "fine". I asked him how he slept last night and he does report that he slept well. He then sticks his index finger in his mouth pulls it out and appears to go off on a tangent however, his words are mostly unintelligible. His affect quickly goes from euthymic to irritable and agitated. Mental Status Examination Appearance: Other (Fair grooming. Patient did shower today per nursing staff.) Consciousness: Alert Orientation: Person Motor Activity: Normal gait, Other (Some mild posturing but no other motor abnormalities noted.) Speech: Rapid Language: Other (More comprehensible) Fund of Knowledge: Adequate Attention and Concentration: Adequate Memory: Unremarkable Mood: Appropriate Affect: Appropriate Thought Process & Associations: Other (Organization is improving.) Thought Content: Bizarre thinking (Mild) Hallucination Type: None, Other (Less internally preoccupied) Delusion Type: None, Paranoid (Some ongoing paranoia is suspected) Suicidal Ideation: No Suicidal Plan: No Suicidal Intention: No Homicidal Ideation: No Homicidal Plan: No Homicidal Intention: No Insight: Poor Judgment: Poor Assessment and Plan - Assessment (1) Chronic schizophrenia Code(s): F20.9 - Schizophrenia, unspecified Status: Acute - Plan Plan: Patient will be reevaluated by the attending psychiatrist. Continue with current treatment plan. Justification for Continued Inpatient Stay: Moving this patient to a less restrictive environment would likely result in decompensation. Request Healthcare Surrogate/Guardian Advocate?: No
[2018-10-19] MEDS: OLANZapine 20 MG Tab.Rapdis PO SCH (20:18)
[2018-10-20] MEDS: LORazepam 0.5 MG Tablet PO SCH ×2 (08:28→20:46)
[2018-10-20] MEDS: OLANZapine 10 MG ODT Tablet PO SCH (08:29)
[2018-10-20] MEDS: Senna/Docusate Sodium 8.6/50 MG Tablet PO SCH ×2 (08:29→20:47)
--- NOTE | 2018-10-20 11:14 | P.PNPSY ---
Subjective Remarks: Reviewed electronic medical records and discussed case with staff. Follow-up was conducted in the hallway with KATHI Brothers present. Patient is rambling and has a very low tone which makes it difficult to understand him. He thinks that their is a person who is trying to threaten him. Nursing report that he agitates quickly. He answers questions with one or two words , which are often repetitive statements. He is cooperative and is easily redirected. Review of Systems All other systems reviewed negative except as stated in HPI Mental Status Examination Appearance: Other (Fair grooming. Patient did shower today per nursing staff.) Consciousness: Alert Orientation: Person Motor Activity: Normal gait, Other (Some mild posturing but no other motor abnormalities noted.) Speech: Rapid Language: Other (More comprehensible) Fund of Knowledge: Adequate Attention and Concentration: Adequate Memory: Unremarkable Mood: Appropriate Affect: Appropriate Thought Process & Associations: Other (Organization is improving.) Thought Content: Bizarre thinking (Mild) Hallucination Type: None, Other (Less internally preoccupied) Delusion Type: None, Paranoid (Some ongoing paranoia is suspected) Suicidal Ideation: No Suicidal Plan: No Suicidal Intention: No Homicidal Ideation: No Homicidal Plan: No Homicidal Intention: No Insight: Poor Judgment: Poor Assessment and Plan - Assessment (1) Chronic schizophrenia Code(s): F20.9 - Schizophrenia, unspecified Status: Acute - Plan Plan: Patient will be reevaluated by the attending psychiatrist. Continue with current treatment plan. Justification for Continued Inpatient Stay: Moving patient to a less restrictive environment may result in his decompensation. Request Healthcare Surrogate/Guardian Advocate?: No
[2018-10-20] MEDS: OLANZapine 20 MG Tab.Rapdis PO SCH (20:47)
[2018-10-21] MEDS: OLANZapine 10 MG ODT Tablet PO SCH (08:32)
[2018-10-21] MEDS: LORazepam 0.5 MG Tablet PO SCH (08:32)
[2018-10-21] MEDS: Senna/Docusate Sodium 8.6/50 MG Tablet PO SCH ×2 (08:32→20:37)
--- NOTE | 2018-10-21 09:55 | P.PNPSY ---
Subjective Remarks: Patient seen and examined with nurse. Chart reviewed. Case discussed with nursing staff. Patient noted to be somewhat rambling and disorganized at times still. On my examination today, the patient presents as described by nursing staff. He is quite concerned about some sort of banking issue and requests assistance with contacting his bank in [place]. I will ask the counselor to assist the patient with this. Some ongoing posturing and internal stimulation noted. No side effects from medications. No physical complaints. Vital Signs Temp Pulse Resp BP Pulse Ox 10/21/18 05:47 97.6 F 89 17 115/64 96 10/20/18 17:34 97.5 F L 126 H 18 114/77 98 10/20/18 16:57 97.5 F L 126 H 18 114/77 98 Intake and Output 10/20/18 10/21/18 10/21/18 22:59 06:59 14:59 Other: Weight 67.7 kg Labs reviewed. No new labs. Review of Systems All other systems reviewed negative except as stated in HPI (Limitation: Poor historian) Mental Status Examination Appearance: Other (Fair) Consciousness: Alert Orientation: Person Motor Activity: Normal gait, Other (Occasional posturing but no other motoric abnormalities noted.) Speech: Rapid Language: Perseveration (Mild) Fund of Knowledge: Adequate Attention and Concentration: Adequate Memory: Unremarkable Mood: Anxious Affect: Anxious Thought Process & Associations: Other (Circumstantial, occasionally tangential) Thought Content: Bizarre thinking (Mild) Hallucination Type: Other (Less internally preoccupied) Delusion Type: None Suicidal Ideation: No Homicidal Ideation: No Insight: Poor Judgment: Poor Assessment and Plan - Assessment (1) Chronic schizophrenia Code(s): F20.9 - Schizophrenia, unspecified Status: Acute - Plan Plan: Some ongoing thought disorder despite robust dose of Zyprexa. I will add back a small dose of Haldol, 2 mg twice daily to augment the Zyprexa. Patient has Cogentin available as needed for EPS. Discontinue Ativan. Continue to monitor on the inpatient unit. Continue other medications and care as ordered. Justification for Continued Inpatient Stay: Medication changes. Risk for decompensation in less restrictive environment. Discharge Planning: Possible placement. Request Healthcare Surrogate/Guardian Advocate?: No
[2018-10-21] MEDS: OLANZapine 20 MG Tab.Rapdis PO SCH (20:37)
[2018-10-22] MEDS: Senna/Docusate Sodium 8.6/50 MG Tablet PO SCH ×2 (08:36→20:42)
[2018-10-22] MEDS: OLANZapine 10 MG ODT Tablet PO SCH (08:36)
[2018-10-22] MEDS ORDERED: Haloperidol 1 MG Tablet PO SCH (09:00)
--- NOTE | 2018-10-22 10:02 | P.PNPSY ---
Subjective Remarks: Patient seen and examined. Chart reviewed. Case discussed with nursing staff who reports patient is more organized. Case discussed in treatment team. Counselor did endeavor to assist patient with his banking concern but found patient grew easily frustrated and agitated, and so this could not be completed. On my exam, patient is still somewhat perseverative on this issue. However, residual though disorder makes it difficult to ascertain the exact nature of the issue, only that it has to do with banking. He exhibits minimal posturing today. He does seem to grow frustrated with inability to make himself understood. No SI/HI. No side effects from medications. No physical complaints. Vital Signs Temp Pulse Resp BP Pulse Ox 10/22/18 05:42 97.8 F 88 18 130/79 97 10/21/18 17:01 97.7 F 88 18 122/72 97 Labs reviewed. No new labs. Review of Systems All other systems reviewed negative except as stated in HPI (Limitation: poor historian.) Mental Status Examination Appearance: Other (Fair) Consciousness: Alert Orientation: Person Motor Activity: Normal gait, Other (Minimal posturing, no other motor abnormalities appreciated.) Speech: Rapid Language: Perseveration (Mild) Fund of Knowledge: Adequate Attention and Concentration: Adequate Memory: Unremarkable Mood: Anxious Affect: Anxious Thought Process & Associations: Other (Circumstantial, occasionally tangential) Thought Content: Bizarre thinking (Mild) Hallucination Type: None Delusion Type: None Suicidal Ideation: No Homicidal Ideation: No Insight: Poor Judgment: Poor Assessment and Plan - Assessment (1) Chronic schizophrenia Code(s): F20.9 - Schizophrenia, unspecified Status: Acute - Plan Plan: Titrate Haldol augmenting Zyprexa to 5mg BID to target residual psychiatric symptoms. Monitor for any EPS or other side effects. Continue to monitor on unit. Continue other care as ordered. Justification for Continued Inpatient Stay: Medication changes. Resolving impairments in reality construction. Risk for decompensation in less restrictive environment. Discharge Planning: Placement. Counselor to work on this. Request Healthcare Surrogate/Guardian Advocate?: No
[2018-10-22] MEDS: OLANZapine 20 MG Tab.Rapdis PO SCH (20:43)
[2018-10-22] MEDS: Haloperidol 5 MG Tablet PO SCH (20:44)
--- NOTE | 2018-10-23 08:21 | P.PNPSY ---
Subjective Remarks: Patient seen and examined. Chart reviewed. Case discussed with nursing staff. Patient noted to be more verbal and articulating a desire to go to assisted living setting. On my examination today, the patient continues to express readiness to go to assisted living. He does display some mild ongoing internal stimulation and is noted at one point to yell angrily at unseen person, but otherwise patient presents no behavioral problem. No medication side effects. No physical complaints. Vital Signs Temp Pulse Resp BP Pulse Ox 10/23/18 05:53 97.4 F L 77 18 131/77 96 10/22/18 18:32 97.5 F L 81 18 131/74 96 Intake and Output 10/22/18 10/23/18 10/23/18 22:59 06:59 14:59 Intake Total 240 / 240 Balance 240 / 240 Intake: Oral 240 / 240 Other: Date of Last Bowel Movement 10/15/18 Labs reviewed. Review of Systems All other systems reviewed negative except as stated in HPI (Limitation: Psychosis) Mental Status Examination Appearance: Other (Fair) Consciousness: Alert Orientation: Person Motor Activity: Normal gait, Other (No motoric abnormalities noted) Speech: Rapid Language: Perseveration (Mild) Fund of Knowledge: Adequate Attention and Concentration: Adequate Memory: Unremarkable Mood: Anxious Affect: Anxious Thought Process & Associations: Other (Still some mild thought disorder but overall much improved versus admission) Thought Content: Appropriate Hallucination Type: Auditory Delusion Type: None Suicidal Ideation: No Homicidal Ideation: No Insight: Poor Judgment: Poor Assessment and Plan - Assessment (1) Chronic schizophrenia Code(s): F20.9 - Schizophrenia, unspecified Status: Acute - Plan Plan: Continue Haldol augmenting Zyprexa as ordered for now. To consider further titration of the Haldol. Continue to monitor on inpatient unit. Continue other care as ordered. Justification for Continued Inpatient Stay: Impairment in reality construction. Risk for decompensation in less restrictive environment. Discharge Planning: Assisted living placement. Counselor is working on this. Request Healthcare Surrogate/Guardian Advocate?: No
[2018-10-23] MEDS: OLANZapine 10 MG ODT Tablet PO SCH (08:24)
[2018-10-23] MEDS: Haloperidol 5 MG Tablet PO SCH ×2 (08:24→20:32)
[2018-10-23] MEDS: Senna/Docusate Sodium 8.6/50 MG Tablet PO SCH ×2 (08:24→20:32)
[2018-10-23] MEDS: OLANZapine 20 MG Tab.Rapdis PO SCH (20:32)
[2018-10-24] MEDS: Haloperidol 5 MG Tablet PO SCH ×2 (08:27→20:23)
[2018-10-24] MEDS: OLANZapine 10 MG ODT Tablet PO SCH (08:28)
[2018-10-24] MEDS: Senna/Docusate Sodium 8.6/50 MG Tablet PO SCH ×2 (08:28→20:23)
--- NOTE | 2018-10-24 11:49 | P.PNPSY ---
Subjective Remarks: Patient seen and examined with nurse. Chart reviewed. Case discussed with nursing staff. On my examination today, the patient continues to display some internal preoccupation and paranoia. He is unable to tolerate extended interview, which he insists on conducting in the hallway outside of his room, and he quickly retreats into his room, looking out of the glass in the door furtively. He is somewhat intrusive during remainder of my rounds on the unit but has difficulty making his purpose known when he engages with other staff members and myself. No evident side effects from medications. No physical complaints. Vital Signs Temp Pulse Resp BP Pulse Ox 10/24/18 05:52 72 18 133/70 97 10/23/18 16:10 97.5 F L 95 H 18 100/72 94 L Intake and Output 10/23/18 10/24/18 10/24/18 22:59 06:59 14:59 Other: Date of Last Bowel Movement 10/15/18 Labs reviewed. Review of Systems All other systems reviewed negative except as stated in HPI Mental Status Examination Appearance: Other (Fair) Consciousness: Alert Orientation: Person Motor Activity: Normal gait, Other (No abnormal motor movements noted.) Speech: Rapid Language: Perseveration Fund of Knowledge: Adequate Attention and Concentration: Adequate Memory: Unremarkable Mood: Anxious Affect: Anxious Thought Process & Associations: Tangential Thought Content: Hallucinations, Delusional Hallucination Type: Other (Appears internally stimulated) Delusion Type: Paranoid Suicidal Ideation: No Homicidal Ideation: No Insight: Poor Judgment: Poor Assessment and Plan - Assessment (1) Chronic schizophrenia Code(s): F20.9 - Schizophrenia, unspecified Status: Acute - Plan Plan: Titrate Haldol to 7.5 mg twice daily augmenting Zyprexa to target residual psychotic symptoms. Continue to monitor on high acuity unit. Continue other medications and care as ordered. Justification for Continued Inpatient Stay: Med changes. Impairment in reality construction. High risk for decompensation and less restrictive environment. Discharge Planning: Placement following psychiatric stabilization. Case discussed with counselor. Request Healthcare Surrogate/Guardian Advocate?: No
[2018-10-24] MEDS: OLANZapine 20 MG Tab.Rapdis PO SCH (20:24)
[2018-10-25] MEDS: OLANZapine 10 MG ODT Tablet PO SCH (09:05)
[2018-10-25] MEDS: Senna/Docusate Sodium 8.6/50 MG Tablet PO SCH ×2 (09:05→20:17)
[2018-10-25] MEDS: Haloperidol 5 MG Tablet PO SCH ×2 (09:06→20:18)
--- NOTE | 2018-10-25 09:57 | P.TTN ---
- Patient Problems Problems: 1. Discharge planning 2. Medication compliance 3. Knowledge deficit 4. Lack of coping skills - Progress Toward Goals Provider Present: Dr. Joss Mitchell (Dr. Mitchell is titrating medications in hopes of further stabilizing this patient. Patient needs to remain for further stabilization.) Provider Input: 10/22/2018 Psychiatrist added Haldol and patient seems to be improving. Psychiatric Counselors Present: Nathen Parra Jr., [facility] (Counselor wait till next week to request interview by [facility] for potential placement. Counselor is waiting for the patient to further stabilize), Other Psychiatric Therapist Input: 10/22/2018 Attempted to meet with patient regarding some banking concerns and a phone call he wanted to make. Patient became highly agitated and was not forthcoming. Charge nurse calmed the patient. Will look for possible placements such as [facility]. Group Spec/RT/OT/[place] Present: SERG Yeung (Patient does attend select groups at this time.), ETHEL Rosales (Patient does not attend groups at this time.), ETHEL Myers (Patient does not come to groups at this time.), Other Group Spec/RT/OT/[place] Input: 10/22/2018 No behavioral problems. - Documentation Teaching Recipient: Patient
--- NOTE | 2018-10-25 10:35 | P.PNPSY ---
Subjective Remarks: Patient seen and examined with nurse. Chart reviewed. Case discussed with nursing staff. Case discussed in treatment team. Therapists note that the patient is able to attend unstructured groups but struggles in more structured groups and can only tolerate a few minutes before having to be returned to the unit. He is noted to be quite restless in groups. On my exam, patient asks to be released "to go to the [homeless] coalition." He makes reference to needing a cigarette, although it is unclear how much he smokes. Patient is unable to sit for even brief interview to discuss possible discharge planning. He becomes increasingly frustrated and stalks in and out of the room saying "Just whatever!" Denies side effects from medications. I do try to question patient closely about whether his restlessness might be related to akathisia, but it is difficult to get a good history from him. No physical complaints. Vital Signs Temp Pulse Resp BP Pulse Ox 10/25/18 06:00 97.6 F 87 18 113/55 L 96 10/24/18 16:52 97.6 F 84 18 128/77 95 Labs reviewed. Review of Systems All other systems reviewed negative except as stated in HPI (Limitation: poor historian.) Mental Status Examination Appearance: Other (Fair) Consciousness: Alert Orientation: Person Motor Activity: Normal gait, Other (Restless. Some posturing. No other motor abnormalities noted.) Speech: Rapid Language: Perseveration Fund of Knowledge: Adequate Attention and Concentration: Adequate Memory: Unremarkable Mood: Anxious Affect: Anxious Thought Process & Associations: Tangential Thought Content: Hallucinations, Delusional Hallucination Type: Other (Remains somewhat internally stimulated) Delusion Type: Paranoid Suicidal Ideation: No Homicidal Ideation: No Insight: Poor Judgment: Poor Assessment and Plan - Assessment (1) Chronic schizophrenia Code(s): F20.9 - Schizophrenia, unspecified Status: Acute - Plan Plan: Concern for possible antipsychotic related akathisia. I will add scheduled Inderal with BP and heart rate parameters. If patient cannot tolerate Inderal or cannot receive it due to parameters, consider discontinuing the Inderal and adding scheduled benzo. Continue Haldol and Zyprexa as ordered for now. I have ordered nicotine patch. Continue to monitor on the inpatient unit. Continue other medications and care as ordered. Justification for Continued Inpatient Stay: Medication changes. High risk for decompensation and less restrictive environment. Discharge Planning: Possible placement. Pending psychiatric stabilization. Request Healthcare Surrogate/Guardian Advocate?: No
[2018-10-25] MEDS: Propranolol 10 MG Tablet PO SCH ×2 (15:26→20:18)
[2018-10-25] MEDS: OLANZapine 20 MG Tab.Rapdis PO SCH (20:18)
[2018-10-26] MEDS: OLANZapine 10 MG ODT Tablet PO SCH (08:32)
[2018-10-26] MEDS: Haloperidol 5 MG Tablet PO SCH ×2 (08:32→21:06)
[2018-10-26] MEDS: Propranolol 10 MG Tablet PO SCH ×3 (08:33→21:05)
[2018-10-26] MEDS: Senna/Docusate Sodium 8.6/50 MG Tablet PO SCH ×2 (08:33→21:05)
--- NOTE | 2018-10-26 15:37 | P.PNPSY ---
Subjective Remarks: Pt seen and discussed with staff. He was admitted for exacerbation of psychosis. He remains paranoid and bizarre in behavior. No SI/HI. He is complaint with medications and denies side effects. RN reports that he gets easily agitated but has not been aggressive on unit. He mimics MD and abruptly leaves interview. No EPS Mental Status Examination Appearance: Other (Fair) Consciousness: Alert Orientation: Person Motor Activity: Normal gait, Other (Restless. Some posturing. No other motor abnormalities noted.) Speech: Rapid Language: Perseveration Fund of Knowledge: Adequate Attention and Concentration: Adequate Memory: Unremarkable Mood: Anxious Affect: Anxious Thought Process & Associations: Tangential Thought Content: Hallucinations, Delusional Hallucination Type: Other (Remains somewhat internally stimulated) Delusion Type: Paranoid Suicidal Ideation: No Suicidal Plan: No Suicidal Intention: No Homicidal Ideation: No Homicidal Plan: No Homicidal Intention: No Insight: Poor Judgment: Poor Assessment and Plan - Assessment (1) Chronic schizophrenia Code(s): F20.9 - Schizophrenia, unspecified Status: Acute - Plan Plan: Continue current tx plan Justification for Continued Inpatient Stay: psychosis Request Healthcare Surrogate/Guardian Advocate?: No
[2018-10-26] MEDS: OLANZapine 20 MG Tab.Rapdis PO SCH (21:05)
[2018-10-27] MEDS: Haloperidol 5 MG Tablet PO SCH ×2 (08:37→20:22)
[2018-10-27] MEDS: Propranolol 10 MG Tablet PO SCH ×3 (08:38→20:22)
[2018-10-27] MEDS: Senna/Docusate Sodium 8.6/50 MG Tablet PO SCH ×2 (08:39→20:22)
[2018-10-27] MEDS: OLANZapine 10 MG ODT Tablet PO SCH (08:40)
--- NOTE | 2018-10-27 14:32 | P.PNPSY ---
Subjective Remarks: Reviewed electronic record and discussed with nursing staff. Rounded with KATHI Brothers. Patient is in his room. He mumbles so it is difficult to hear him. He appears to be calmer and less anxious. Nursing reports that he is still easily distracted , but is following directions. Continues to be paranoid and delusional. He has a poor appetite, but does attend every meal. He is sleeping well. Review of Systems All other systems reviewed negative except as stated in HPI Mental Status Examination Appearance: Other (Fair) Consciousness: Alert Orientation: Person Motor Activity: Normal gait, Other (still a little restless ) Speech: Rapid Language: Perseveration Fund of Knowledge: Adequate Attention and Concentration: Adequate Memory: Unremarkable Mood: Anxious Affect: Anxious Thought Process & Associations: Tangential Thought Content: Hallucinations, Delusional Hallucination Type: Other (Remains somewhat internally stimulated) Delusion Type: Paranoid Suicidal Ideation: No Suicidal Plan: No Suicidal Intention: No Homicidal Ideation: No Homicidal Plan: No Homicidal Intention: No Insight: Poor Judgment: Poor Assessment and Plan - Assessment (1) Chronic schizophrenia Code(s): F20.9 - Schizophrenia, unspecified Status: Acute - Plan Plan: Continue current tx plan Justification for Continued Inpatient Stay: Moving to a less restrictive environment may result in his decompensation. Request Healthcare Surrogate/Guardian Advocate?: No
[2018-10-27] MEDS: OLANZapine 20 MG Tab.Rapdis PO SCH (20:22)
[2018-10-28] MEDS: Haloperidol 5 MG Tablet PO SCH ×2 (08:17→20:16)
[2018-10-28] MEDS: Propranolol 10 MG Tablet PO SCH ×2 (08:17→20:17)
[2018-10-28] MEDS: OLANZapine 10 MG ODT Tablet PO SCH (08:21)
[2018-10-28] MEDS: Senna/Docusate Sodium 8.6/50 MG Tablet PO SCH ×2 (08:22→20:16)
--- NOTE | 2018-10-28 09:39 | P.PNPSY ---
Subjective Remarks: Patient seen and examined. Chart reviewed. I note patient has received two- thirds of his Inderal doses, the remainder being held due to BP parameters. Case discussed with RN who reports patient had an episode of emesis today. He has been no behavioral problem. On my exam today, patient seems considerably calmer and less restless. He denies ongoing nausea and attributes emesis to food that he ate. He does exhibit some ongoing internal preoccupation, but this seems improved. No reported side effects from medications. No other physical complaints. Patient is now refusing [facility] placement; I have asked the counselor to speak with patient regarding discharge planning. Vital Signs Temp Pulse Resp BP Pulse Ox 10/28/18 06:00 98.6 F 75 17 142/76 H 97 Intake and Output 10/27/18 10/28/18 10/28/18 22:59 06:59 14:59 Other: Date of Last Bowel Movement 10/15/18 Weight 69.7 kg Labs reviewed. Review of Systems All other systems reviewed negative except as stated in HPI (Limitation: Poor historian) Mental Status Examination Appearance: Other (Fair grooming) Consciousness: Alert Orientation: Person, Place (At least) Motor Activity: Normal gait, Other (Less restless. No other motor abnormalities noted.) Speech: Unremarkable Language: Other (Somewhat rambling) Fund of Knowledge: Adequate Attention and Concentration: Adequate Memory: Unremarkable Mood: Anxious (Mild) Affect: Anxious Thought Process & Associations: Circumstantial Thought Content: Hallucinations, Delusional Hallucination Type: Other (Mild internal stimulation) Delusion Type: Paranoid (Decreased) Suicidal Ideation: No Homicidal Ideation: No Insight: Poor Judgment: Poor Assessment and Plan - Assessment (1) Chronic schizophrenia Code(s): F20.9 - Schizophrenia, unspecified Status: Acute - Plan Plan: Titrate Haldol to 10 mg twice daily to target residual psychotic symptoms. Adjust Inderal to 10 mg twice daily to reduce episodes of holding this medication due to BP. Monitor for ongoing nausea/GI complaints. Continue to monitor on the inpatient unit. Continue other care as ordered. Justification for Continued Inpatient Stay: Medication changes. High risk for decompensation in less restrictive environment. Discharge Planning: I believe patient would likely benefit from placement in structured living environment such as at [facility], but he is asking us to work towards a homegoing discharge plan. I have asked the counselor to speak with patient regarding discharge planning. Request Healthcare Surrogate/Guardian Advocate?: No
[2018-10-28] MEDS: OLANZapine 20 MG Tab.Rapdis PO SCH (20:17)
[2018-10-29] MEDS: Senna/Docusate Sodium 8.6/50 MG Tablet PO SCH ×2 (08:09→20:37)
[2018-10-29] MEDS: Propranolol 10 MG Tablet PO SCH ×2 (08:09→20:37)
[2018-10-29] MEDS: OLANZapine 10 MG ODT Tablet PO SCH (08:09)
[2018-10-29] MEDS: Haloperidol 5 MG Tablet PO SCH ×2 (08:10→20:36)
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
--- NOTE | 2018-10-29 11:28 | P.TTN ---
- Patient Problems Problems: 1. Discharge planning 2. Medication compliance 3. Knowledge deficit 4. Lack of coping skills - Progress Toward Goals Provider Present: Dr. Joss Mitchell (Dr. Mitchell is titrating medications and is hopeful the patient will be placed in an assisted living facility.) Provider Input: 10/22/2018 Psychiatrist added Haldol and patient seems to be improving. Psychiatric Counselors Present: Nathen Parra Jr., [facility] (Counselor met with the patient yesterday to assess for potential placement at assisted living facility. Patient presented as disorganized, and was either unable or unwilling to maintain appropriate conversation. Counselor will attempt to discuss potential assisted living facility placement with the patient again today.), Other Psychiatric Therapist Input: 10/22/2018 Attempted to meet with patient regarding some banking concerns and a phone call he wanted to make. Patient became highly agitated and was not forthcoming. Charge nurse calmed the patient. Will look for possible placements such as [facility]. Group Spec/RT/OT/[place] Present: SERG Yeung (Patient does attend select groups at this time.), ETHEL Rosales (Patient attends select groups and has difficulty tolerating most group activities.), ETHEL Myers ( Patient does not come to groups at this time.), Other Group Spec/RT/OT/[place] Input: 10/22/2018 No behavioral problems. - Documentation Teaching Recipient: Patient, Family
[2018-10-29] MEDS: OLANZapine 20 MG Tab.Rapdis PO SCH (20:37)
[2018-10-30] MEDS: Propranolol 10 MG Tablet PO SCH ×2 (08:16→20:40)
[2018-10-30] MEDS: Haloperidol 5 MG Tablet PO SCH ×2 (08:16→20:40)
[2018-10-30] MEDS: Senna/Docusate Sodium 8.6/50 MG Tablet PO SCH ×2 (08:16→20:40)
[2018-10-30] MEDS: OLANZapine 10 MG ODT Tablet PO SCH (08:17)
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
[2018-10-30] MEDS: OLANZapine 20 MG Tab.Rapdis PO SCH (20:40)
[2018-10-31] MEDS: Haloperidol 5 MG Tablet PO SCH ×2 (08:00→20:42)
[2018-10-31] MEDS: OLANZapine 10 MG ODT Tablet PO SCH (08:00)
[2018-10-31] MEDS: Senna/Docusate Sodium 8.6/50 MG Tablet PO SCH (08:00)
[2018-10-31] MEDS: Propranolol 10 MG Tablet PO SCH ×2 (08:00→20:42)
--- NOTE | 2018-10-31 10:19 | P.PNPSY ---
Subjective Remarks: Patient seen and examined with nurse. Chart reviewed. Case discussed with nursing staff. Patient reportedly had some diarrhea yesterday evening and appropriately refused his Lindy-Colace this morning. He has been no behavioral problem otherwise. On my exam, patient reports resolution of diarrhea. He has no physical complaints otherwise. He reports that he is doing well with his current medications. He tells me that his garments have been laundered. He remains agreeable to assisted living placement and is willing to remain here through the New Year if necessary to accomplish this goal. He remains a little skittish and is not interested in extended interview. However, in our relatively brief interaction he is appropriate and his speech is fully comprehensible. Vital Signs Temp Pulse Resp BP Pulse Ox 10/31/18 06:17 97.9 F 69 18 112/64 97 10/30/18 17:06 99.1 F 75 18 112/62 100 Labs reviewed. Review of Systems All other systems reviewed negative except as stated in HPI Mental Status Examination Appearance: Appropriate Consciousness: Alert Orientation: Person, Place (At least) Motor Activity: Normal gait, Other (No motor abnormalities noted) Speech: Unremarkable Language: Adequate Fund of Knowledge: Adequate Attention and Concentration: Adequate Memory: Unremarkable Mood: Appropriate Affect: Blunt Thought Process & Associations: Intact Thought Content: Appropriate Hallucination Type: None Delusion Type: None Suicidal Ideation: No Homicidal Ideation: No Insight: Poor Judgment: Poor Assessment and Plan - Assessment (1) Chronic schizophrenia Code(s): F20.9 - Schizophrenia, unspecified Status: Acute - Plan Plan: Continue Haldol augmenting Zyprexa as ordered. Discontinue Lindy-Colace and monitor for recurrence of diarrhea. Continue to monitor on inpatient unit. Continue other care as ordered. Justification for Continued Inpatient Stay: High risk for decompensation in less restrictive setting. Discharge Planning: Counselor is working with patient on assisted living placement, and patient remains agreeable to such placement. Request Healthcare Surrogate/Guardian Advocate?: No
[2018-10-31] MEDS: OLANZapine 20 MG Tab.Rapdis PO SCH (20:42)
[2018-11-01] MEDS: OLANZapine 10 MG ODT Tablet PO SCH (08:27)
[2018-11-01] MEDS: Propranolol 10 MG Tablet PO SCH ×3 (08:27→20:12)
[2018-11-01] MEDS: Haloperidol 5 MG Tablet PO SCH ×2 (08:28→20:11)
--- NOTE | 2018-11-01 11:39 | P.PNPSY ---
Subjective Remarks: Patient seen and examined with counselor. Chart reviewed. Case discussed with nursing staff. Case discussed in treatment team. Re Recording Mixer from assisted living facility is to come evaluate the patient today for possible entry into that facility. Therapists note that the patient continues to improve and is better able to tolerate group activities. On my examination today, the patient is noted to be quite friendly and sociable. He greets this provider and engages in social niceties such as asking about my day. He remains agreeable to [facility] placement. As before, he retires to his room after a brief interaction, but he is appropriate throughout the duration of our interaction. No psychotic material verbalized. No side effects from medications. No physical complaints. Vital Signs Temp Pulse Resp BP Pulse Ox 11/01/18 06:00 97.3 F L 76 16 101/64 98 10/31/18 16:55 97.6 F 72 18 108/66 72 L Labs reviewed. No new labs. Review of Systems All other systems reviewed negative except as stated in HPI Mental Status Examination Appearance: Appropriate Consciousness: Alert Orientation: Person, Place (At least) Motor Activity: Normal gait, Other (No abnormal motor movements noted) Speech: Unremarkable Language: Adequate Fund of Knowledge: Adequate Attention and Concentration: Adequate Memory: Unremarkable Mood: Appropriate Affect: Blunt Thought Process & Associations: Intact Thought Content: Appropriate Hallucination Type: None Delusion Type: None Suicidal Ideation: No Homicidal Ideation: No Insight: Poor Judgment: Poor Assessment and Plan - Assessment (1) Chronic schizophrenia Code(s): F20.9 - Schizophrenia, unspecified Status: Acute - Plan Plan: Continue Haldol supplementing Zyprexa as ordered. Continue to monitor on the unit. Continue other care as ordered. Justification for Continued Inpatient Stay: Risk for decompensation in less restrictive setting. Discharge Planning: Hopeful for assisted living placement, possibly as early as beginning of next week. Request Healthcare Surrogate/Guardian Advocate?: No
--- NOTE | 2018-11-01 14:53 | P.TTN ---
- Patient Problems Problems: 1. Discharge planning 2. Medication compliance 3. Knowledge deficit 4. Lack of coping skills - Progress Toward Goals Provider Present: Dr. Joss Mitchell (Patient remains for further stabilization.) Provider Input: 10/22/2018 Psychiatrist added Haldol and patient seems to be improving. Psychiatric Counselors Present: Nathen Parra Jr., [facility] ([facility] is coming to assess the patient today for potential placement at assisted living facility. ), Other Psychiatric Therapist Input: 10/22/2018 Attempted to meet with patient regarding some banking concerns and a phone call he wanted to make. Patient became highly agitated and was not forthcoming. Charge nurse calmed the patient. Will look for possible placements such as [facility]. Group Spec/RT/OT/[place] Present: SERG Yeung (Patient does not attend groups at this time), ETHEL Rosales (Patient attends select groups and has difficulty tolerating most group activities.), ETHEL Myers ( Patient does not come to groups at this time.), Other Group Spec/RT/OT/[place] Input: 10/22/2018 No behavioral problems. - Documentation Teaching Recipient: Patient
[2018-11-01] MEDS: OLANZapine 20 MG Tab.Rapdis PO SCH (20:11)
[2018-11-02] MEDS: Propranolol 10 MG Tablet PO SCH ×2 (08:24→20:34)
[2018-11-02] MEDS: Haloperidol 5 MG Tablet PO SCH ×2 (08:24→20:35)
[2018-11-02] MEDS: OLANZapine 10 MG ODT Tablet PO SCH (08:24)
--- NOTE | 2018-11-02 14:49 | P.PNPSY ---
Subjective Remarks: Reviewed electronic medical records and discussed case with staff. Follow-up was conducted in the hallway with KATHI Brothers present. His nurse reports he has been doing well but still occasionally irritable. She states that he can now speak in complete sentences occasionally. He has been compliant with his medications and treatment and has had no behavioral disturbances of late. Patient states he feels better he sleeping good and his appetite is been good. He does approach this provider later and attempts to relay something to me but it is largely unintelligible. Mental Status Examination Appearance: Appropriate Consciousness: Alert Orientation: Person, Place (At least) Motor Activity: Normal gait, Other (No abnormal motor movements noted) Speech: Unremarkable Language: Adequate Fund of Knowledge: Adequate Attention and Concentration: Adequate Memory: Unremarkable Mood: Appropriate Affect: Blunt Thought Process & Associations: Intact Thought Content: Appropriate Hallucination Type: None Delusion Type: None Suicidal Ideation: No Suicidal Plan: No Suicidal Intention: No Homicidal Ideation: No Homicidal Plan: No Homicidal Intention: No Insight: Poor Judgment: Poor Assessment and Plan - Assessment (1) Chronic schizophrenia Code(s): F20.9 - Schizophrenia, unspecified Status: Acute - Plan Plan: Patient will be reevaluated by the attending psychiatrist. Continue with current treatment plan. Justification for Continued Inpatient Stay: Moving this patient to a less restrictive environment would likely result in decompensation. Request Healthcare Surrogate/Guardian Advocate?: No
[2018-11-02] MEDS: OLANZapine 20 MG Tab.Rapdis PO SCH (20:34)
[2018-11-03] MEDS: Haloperidol 5 MG Tablet PO SCH ×2 (08:24→20:27)
[2018-11-03] MEDS: OLANZapine 10 MG ODT Tablet PO SCH (08:24)
[2018-11-03] MEDS: Propranolol 10 MG Tablet PO SCH ×3 (08:24→20:28)
--- NOTE | 2018-11-03 11:20 | P.PNPSY ---
Subjective Remarks: Patient seen and examined. Chart reviewed. Case discussed with nursing staff. On my exam, patient is calm and pleasant. Somewhat intrusive. No SI or HI. Thought process considerably more organized versus earlier in the hospital stay. No side effects from medications. No physical complaints. Vital Signs Temp Pulse Resp BP Pulse Ox 11/03/18 06:00 98.6 F 74 18 126/67 98 11/02/18 18:09 97.5 F L 85 18 118/71 94 L Intake and Output 11/02/18 11/03/18 11/03/18 22:59 06:59 14:59 Other: Date of Last Bowel Movement 11/02/18 Labs reviewed. Review of Systems other (Limited ROS today) Mental Status Examination Appearance: Appropriate Consciousness: Alert Orientation: Person, Place (At least) Motor Activity: Normal gait, Other (No motor abnormalities noted) Speech: Unremarkable Language: Adequate Fund of Knowledge: Adequate Attention and Concentration: Adequate Memory: Unremarkable Mood: Anxious (Mild) Affect: Blunt Thought Process & Associations: Intact Thought Content: Appropriate Hallucination Type: None Delusion Type: None Suicidal Ideation: No Homicidal Ideation: No Insight: Poor Judgment: Poor Assessment and Plan - Assessment (1) Chronic schizophrenia Code(s): F20.9 - Schizophrenia, unspecified Status: Acute - Plan Plan: Continue Haldol and Zyprexa as ordered. Continue to monitor on the inpatient unit. Continue other medications and care as ordered. Justification for Continued Inpatient Stay: Risk for decompensation in less restrictive environment. Discharge Planning: Placement Request Healthcare Surrogate/Guardian Advocate?: No
[2018-11-03] MEDS: OLANZapine 20 MG Tab.Rapdis PO SCH (20:26)
[2018-11-04] MEDS: Haloperidol 5 MG Tablet PO SCH ×2 (08:30→20:07)
[2018-11-04] MEDS: OLANZapine 10 MG ODT Tablet PO SCH (08:30)
[2018-11-04] MEDS: Propranolol 10 MG Tablet PO SCH ×2 (08:31→20:08)
--- NOTE | 2018-11-04 08:44 | P.PNPSY ---
Subjective Remarks: Patient seen and examined. Chart reviewed. Case discussed with nursing staff. Case discussed with counselor who continues to work on placement for the patient. On my examination today, the patient denies any SI/HI/AVH. He tells me "everything is fine." He is agreeable to remain on the unit for placement. He continues to be social and appropriate in brief interaction but visibly struggles as the interview continues and is relieved when it is concluded, No side effects from medications. No physical complaints. Vital Signs Temp Pulse Resp BP Pulse Ox 11/04/18 06:00 98.1 F 68 16 108/58 L 96 11/03/18 15:59 98.4 F 99 H 18 115/61 99 Intake and Output 11/03/18 11/04/18 11/04/18 22:59 06:59 14:59 Other: Weight 69.7 kg Labs reviewed. Review of Systems All other systems reviewed negative except as stated in HPI (Limitation: Poor historian) Mental Status Examination Appearance: Appropriate Consciousness: Alert Orientation: Person, Place (At least) Motor Activity: Normal gait, Other (No abnormal motor movements noted) Speech: Unremarkable Language: Adequate Fund of Knowledge: Adequate Attention and Concentration: Adequate Memory: Unremarkable Mood: Anxious (Mild) Affect: Blunt Thought Process & Associations: Intact Thought Content: Appropriate Hallucination Type: None Delusion Type: None Suicidal Ideation: No Suicidal Plan: No Suicidal Intention: No Homicidal Ideation: No Homicidal Plan: No Homicidal Intention: No Insight: Poor Judgment: Poor Assessment and Plan - Assessment (1) Chronic schizophrenia Code(s): F20.9 - Schizophrenia, unspecified Status: Acute - Plan Plan: Continue Haldol supplementing Zyprexa as ordered. Could consider initiation of long-acting injectable Haldol decanoate. Check an updated set of basic laboratories. Continue to monitor on the inpatient unit. Continue other medications and care as ordered. Justification for Continued Inpatient Stay: High risk for decompensation in less restrictive environment. Discharge Planning: Counselor working on placement for patient. Request Healthcare Surrogate/Guardian Advocate?: No
[2018-11-04] MEDS: OLANZapine 20 MG Tab.Rapdis PO SCH (20:08)
[2018-11-05 07:00] LABS: Baso % (Auto) 0.6 % (0.0-2.0); Eos # (Auto) 0.3 th/mm3 (0.0-0.4); Eos % (Auto) 3.5 % (0.0-4.0); Hematocrit 41.3 % (39.0-51.0); Hemoglobin 14.1 gm/dL (13.0-17.0); Lymph # (Auto) 1.5 th/mm3 (1.0-4.8); Lymph % (Auto) 21.2 % (9.0-44.0); Mean Corpuscular HGB Conc 34.1 % (32.0-36.0); Mean Corpuscular Hemoglobin 29.4 pg (27.0-34.0); Mean Corpuscular Volume 86.3 fL (80.0-100.0); Mean Platelet Volume 7.5 fL (7.0-11.0); Mono # (Auto) 0.6 th/mm3 (0.0-0.9); Neut # (Auto) 4.7 th/mm3 (1.8-7.7); Neut % (Auto) 66.7 % (16.0-70.0); Platelet Count 209 th/mm3 (150-450); Red Blood Count 4.79 mil/mm3 (4.50-5.90); Red Cell Distribution Width 14.9 % (11.6-17.2); White Blood Count 7.1 th/mm3 (4.0-11.0)
[2018-11-05 07:22] LABS: Albumin 3.5 g/dL (3.4-5.0); Anion Gap 1 meq/L (5-15); Aspartate Aminotransferase 30 U/L (15-37); Blood Urea Nitrogen 24 mg/dL (7-18); Carbon Dioxide 32.6 meq/L (21.0-32.0); Chloride 102 meq/L (98-107); Glomerular Filtration Rate Greater Than 89 mL/min (>89); Glucose,Random 93 mg/dL (74-106); Potassium 4.4 meq/L (3.5-5.1); Sodium 136 meq/L (136-145)
[2018-11-05 07:24] LABS: Alanine Aminotransferase 57 U/L (12-78)
[2018-11-05 07:25] LABS: Alkaline Phosphatase 105 U/L (45-117); Total Protein 6.8 g/dL (6.4-8.2)
[2018-11-05] MEDS: Haloperidol 5 MG Tablet PO SCH ×2 (08:10→20:27)
[2018-11-05] MEDS: OLANZapine 10 MG ODT Tablet PO SCH (08:10)
[2018-11-05] MEDS: Propranolol 10 MG Tablet PO SCH ×2 (08:10→20:24)
--- NOTE | 2018-11-05 09:36 | P.PNPSY ---
Subjective Remarks: Patient seen and examined. Chart reviewed. Case discussed with nursing staff. Case discussed in treatment team. Counselor continues to work towards placement for the patient. On my exam, patient is somewhat more animated today. Affect is somewhat irritable. Nursing has reported that there is an agitated female peer on the unit who may be distressing this and other patients. Patient is not interested in extended interview today. No evident medication side effects. No physical complaints. Vital Signs Temp Pulse Resp BP Pulse Ox 11/05/18 06:00 97.3 F L 72 18 110/68 96 11/04/18 17:13 98.6 F 69 18 109/66 97 Laboratory Results - last 24 hr 11/05/18 11/05/18 06:50 06:50 WBC 7.1 RBC 4.79 Hgb 14.1 Hct 41.3 MCV 86.3 MCH 29.4 MCHC 34.1 RDW 14.9 Plt Count 209 MPV 7.5 Neut % (Auto) 66.7 Lymph % (Auto) 21.2 [place] % (Auto) 8.0 Eos % (Auto) 3.5 Baso % (Auto) 0.6 Neut # (Auto) 4.7 Lymph # (Auto) 1.5 [place] # (Auto) 0.6 Eos # (Auto) 0.3 Baso # (Auto) 0.0 WBC Differential . Differential Comment Auto diff final Sodium 136 Potassium 4.4 Chloride 102 Carbon Dioxide 32.6 H Anion Gap 1 L BUN 24 H Creatinine 0.81 Estimated GFR Greater than 89 Random Glucose 93 Calcium 9.0 Total Bilirubin 0.4 AST 30 ALT 57 Alkaline Phosphatase 105 Total Protein 6.8 Albumin 3.5 Labs reviewed. CBC and CMP are unremarkable. Review of Systems other (Limited ROS today.) Mental Status Examination Appearance: Appropriate Consciousness: Alert Orientation: Person, Place (At least) Motor Activity: Normal gait, Other (No motor abnormalities noted) Speech: Unremarkable Language: Adequate Fund of Knowledge: Adequate Attention and Concentration: Adequate Memory: Unremarkable Mood: Anxious Affect: Irritable (Mild), Anxious Thought Process & Associations: Circumstantial Thought Content: Appropriate Hallucination Type: None Delusion Type: None Suicidal Ideation: No Homicidal Ideation: No Insight: Poor Judgment: Poor Assessment and Plan - Assessment (1) Chronic schizophrenia Code(s): F20.9 - Schizophrenia, unspecified Status: Acute - Plan Plan: Continue Haldol supplementing Zyprexa as ordered. Patient seems a little more distressed today and may require psychotropic medication adjustment, although this may also be related to disruption on the unit; will monitor. Continue Inderal for akathisia. Continue to monitor on the inpatient unit. Continue other care as ordered. I have endeavored to discuss with patient that this is my last day at [place] and that new psychiatric provider will be assuming care of his case tomorrow, but patient concludes interview before I am able to process this with him. Justification for Continued Inpatient Stay: High risk for decompensation in less restrictive environment. Discharge Planning: Counselor is working on placement for this patient. Request Healthcare Surrogate/Guardian Advocate?: No
--- NOTE | 2018-11-05 10:02 | P.TTN ---
- Patient Problems Problems: 1. Discharge planning 2. Medication compliance 3. Knowledge deficit 4. Lack of coping skills - Progress Toward Goals Provider Present: Dr. Joss Mitchell (No change in medication, Dr. Mitchell is advocating for structure disc discharge plan at this time.) Provider Input: 10/22/2018 Psychiatrist added Haldol and patient seems to be improving. Psychiatric Counselors Present: Nathen Parra Jr., [facility] (Patient was denied at [facility] due to lack of insurance. Counselor will follow up with adult family care homes. Patient is advocating to be discharged to a homeless senior care as soon as possible.), Other Psychiatric Therapist Input: 10/22/2018 Attempted to meet with patient regarding some banking concerns and a phone call he wanted to make. Patient became highly agitated and was not forthcoming. Charge nurse calmed the patient. Will look for possible placements such as [facility]. Group Spec/RT/OT/[place] Present: SERG Yeung (Patient does not attend groups at this time), ETHEL Rosales (Patient attends select groups and has difficulty tolerating most group activities.), ETHEL Myers ( Patient does not attend groups.), Other Group Spec/RT/OT/[place] Input: 10/22/2018 No behavioral problems. - Documentation Teaching Recipient: Patient
[2018-11-05] MEDS: OLANZapine 20 MG Tab.Rapdis PO SCH (20:27)
[2018-11-06 05:44] VITALS: BP 102/56; PULSE 67; RESP 18; TEMP 97.3; O2SAT 98
[2018-11-06] MEDS: OLANZapine 10 MG ODT Tablet PO SCH (08:18)
[2018-11-06] MEDS: Propranolol 10 MG Tablet PO SCH (08:18)
[2018-11-06] MEDS: Haloperidol 5 MG Tablet PO SCH (08:18)
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
== END 2018-11-06 14:30 ==
LOC: NEPD 10:37 → NEDA 10-08 10:10 → H270 10-08 11:10
PROVIDERS: ADMIT Psychiatry & Neurology Psychiatry; ATTEND Psychiatry & Neurology Psychiatry